=== PATIENT | male | born 1980 | race Two or more races ===

== ENCOUNTER 2020-06-24 13:27 | Inpatient (IN) | payer MEDICAID, OTHER ==
[~2020-06-24] VITALS: Ht 170.2 cm; Wt 176.7 kg
[2020-06-24] MEDS ORDERED: IPRATROPIUM BROM 0.5 MG/2.5ML INH SOL NEB ONE (14:00)
[2020-06-24] MEDS ORDERED: ALBUTEROL SULF 2.5 MG/0.5ML(0.5%) NEB SOLN NEB ONE (14:00)
[2020-06-24] MEDS ORDERED: ALBUTEROL SULF 2.5 MG/0.5ML(0.5%) NEB SOLN ONE (14:32)
[2020-06-24 14:39] LABS: Basophils # (auto) 0 10 ^3/uL (0-0.2); Basophils % (auto) 0.2 % (0.0-2.0); Eosinophils # (auto) 0.2 10 ^3/uL (0-0.8); Eosinophils % (auto) 1.7 % (0.0-7.0); Hematocrit 48.9 % (41.0-53.0); Hemoglobin 15.2 g/dL (13.5-17.5); Lymphocytes % (auto) 10.5 % (10.0-50.0); Mean Corpuscular Hemoglobin 28.3 pg (28.0-32.0); Mean Corpuscular Hgb Conc. 31.1 g/dL (32.0-36.0); Mean Corpuscular Volume 91.1 fL (80.0-100.0); Monocytes % (auto) 10.3 % (0.0-12.0); Neutrophils # (auto) 7.4 10 ^3/uL (1.6-8.6); Neutrophils % (auto) 77.3 % (37.0-80.0); Nucleated Red Blood Cells % 0.4 %; Platelet Count (auto) 224 10^3/uL (140-450); Red Blood Cells 5.37 10^6/uL (4.5-5.90); Red Cell Distribution Width 18.2 % (11.8-14.3); White Blood Cell 9.6 10^3/uL (4.4-10.8)
[2020-06-24 15:08] LABS: Albumin 3.5 g/dL (3.4-5.0); Anion Gap 1 (5-15); Blood Urea Nitrogen 13 mg/dL (7-18); Calcium 8.2 mg/dL (8.5-10.1); Carbon Dioxide 37 mmol/L (21-32); Chloride 99 mmol/L (98-107); Glucose 110 mg/dL (74-106); Potassium 4.3 mmol/L (3.5-5.1); Sodium 137 mmol/L (136-145)
[2020-06-24] MEDS ORDERED: DOXYCYCLINE 100MG/250ML 250 ML IV ONE (15:15)
[2020-06-24] MEDS ORDERED: methylPREDNISolone SOD SUCC 125 MG/2 ML VL IV ONE (15:15)
[2020-06-24 15:16] LABS: Alanine Aminotransferase 50 U/L (16-61); Alkaline Phosphatase 141 U/L (45-117); Aspartate Aminotransferase 31 U/L (15-37); BUN/Creatinine Ratio 16.7; Bilirubin, Total 0.4 mg/dL (0.2-1.0); GFR African American 144 mL/min; GFR Non-African American 119 mL/min; Total Protein 7.9 g/dL (6.4-8.2)
[2020-06-24 16:12] LABS: INR 1.01 (0.9-1.15); Partial Thromboplastin Time 28.7 sec (23.0-31.2)
[2020-06-24 18:20] VITALS: BP 104/67
[2020-06-24 19:05] VITALS: BP 104/67
[2020-06-24] MEDS ORDERED: ALBUTEROL SULF 2.5 MG/0.5ML(0.5%) NEB SOLN NEB PRN (20:45)
[2020-06-24] MEDS ORDERED: MORPHINE SULF INJ 2 MG/ML SYRINGE 1ML IV PRN ×2 (20:45)
[2020-06-24] MEDS ORDERED: NITROGLYCERIN 0.4 MG SL TAB SL PRN (20:45)
[2020-06-24] MEDS ORDERED: levoFLOXacin 750MG 150 ML IV ONE (20:45)
[2020-06-24 21:40] VITALS: BP 144/95
[2020-06-24 21:55] VITALS: BP 144/95
[2020-06-24] MEDS ORDERED: methylPREDNISolone SOD SUCC 40 MG/ML VL IM SCH (22:00)
[2020-06-24] MEDS ORDERED: METF-370 PO (22:13)
[2020-06-24] MEDS ORDERED: LISI40TA11 PO (22:13)
[2020-06-24] MEDS ORDERED: FURO1TAB31 PO (22:13)
[2020-06-24] MEDS ORDERED: BECL40AE11 IN (22:13)
[2020-06-24] MEDS ORDERED: POLY33504 PO (22:13)
[2020-06-24] MEDS ORDERED: CARV6.25 PO (22:13)
[2020-06-25] VITALS (15 sets, daily range): BP systolic 100–130; BP diastolic 55–81
[2020-06-25] MEDS: methylPREDNISolone SOD SUCC 40 MG/ML VL IV SCH ×3 (00:18→20:17)
[2020-06-25 03:45] LABS: Basophils # (auto) 0 10 ^3/uL (0-0.2); Basophils % (auto) 0.1 % (0.0-2.0); Eosinophils # (auto) 0 10 ^3/uL (0-0.8); Eosinophils % (auto) 0.1 % (0.0-7.0); Hemoglobin 15.2 g/dL (13.5-17.5); Lymphocytes # (auto) 0.8 10 ^3/uL (0.4-5.4); Lymphocytes % (auto) 7.9 % (10.0-50.0); Mean Corpuscular Hemoglobin 28.5 pg (28.0-32.0); Mean Corpuscular Hgb Conc. 31.7 g/dL (32.0-36.0); Mean Corpuscular Volume 89.9 fL (80.0-100.0); Monocytes # (auto) 0.2 10 ^3/uL (0-1.3); Monocytes % (auto) 1.7 % (0.0-12.0); Neutrophils # (auto) 9.5 10 ^3/uL (1.6-8.6); Neutrophils % (auto) 90.2 % (37.0-80.0); Nucleated Red Blood Cells % 0.1 %; Platelet Count (auto) 229 10^3/uL (140-450); Red Blood Cells 5.34 10^6/uL (4.5-5.90); White Blood Cell 10.5 10^3/uL (4.4-10.8)
[2020-06-25 05:34] LABS: Urine Amorphous Crystal FEW /hpf (None Seen); Urine Bacteria NONE SEEN /hpf (None Seen); Urine Blood Negative /uL (Negative); Urine Mucus FEW (None Seen); Urine Specific Gravity 1.018 (1.001-1.035); Urine WBC 1 /hpf (0 - 3)
[2020-06-25 05:41] LABS: Albumin 3.1 g/dL (3.4-5.0); Calcium 8.6 mg/dL (8.5-10.1); Potassium 4.6 mmol/L (3.5-5.1)
[2020-06-25 05:44] LABS: BUN/Creatinine Ratio 18.5; Bilirubin, Total 0.4 mg/dL (0.2-1.0); Total Protein 7.6 g/dL (6.4-8.2)
[2020-06-25] MEDS: ENOXAPARIN SOD 40 MG/0.4 ML SYRINGE SC SCH (10:10)
[2020-06-25] MEDS: PANTOPRAZOLE 40 MG/10 ML VIAL INJ IV SCH (10:10)
[2020-06-25] MEDS: IPRATROPIUM BROM 0.5 MG/2.5ML INH SOL NEB PRN (12:28)
[2020-06-25] MEDS: ALBUTEROL SULF 2.5 MG/0.5ML(0.5%) NEB SOLN NEB PRN (12:28)
[2020-06-25] MEDS: CLOTRIMAZOLE 1 % CREAM 15GM TOP SCH (20:17)
[2020-06-25] MEDS: levoFLOXacin 750MG 150 ML IV SCH (20:17)
[2020-06-25] MEDS ORDERED: CLOTRIMAZOLE 1 % CREAM 15GM TOP SCH (22:00)
[2020-06-26] VITALS (8 sets, daily range): BP systolic 99–143; BP diastolic 60–86
[2020-06-26 03:59] LABS: Basophils # (auto) 0 10 ^3/uL (0-0.2); Basophils % (auto) 0.3 % (0.0-2.0); Eosinophils # (auto) 0 10 ^3/uL (0-0.8); Hematocrit 47.9 % (41.0-53.0); Lymphocytes # (auto) 0.6 10 ^3/uL (0.4-5.4); Lymphocytes % (auto) 4.3 % (10.0-50.0); Mean Corpuscular Hemoglobin 28.2 pg (28.0-32.0); Mean Corpuscular Hgb Conc. 31.3 g/dL (32.0-36.0); Mean Corpuscular Volume 90.2 fL (80.0-100.0); Monocytes # (auto) 0.7 10 ^3/uL (0-1.3); Monocytes % (auto) 5.2 % (0.0-12.0); Neutrophils # (auto) 11.6 10 ^3/uL (1.6-8.6); Neutrophils % (auto) 90.2 % (37.0-80.0); Nucleated Red Blood Cells % 0.2 %; Platelet Count (auto) 245 10^3/uL (140-450); Red Cell Distribution Width 18.1 % (11.8-14.3); White Blood Cell 12.9 10^3/uL (4.4-10.8)
[2020-06-26 04:16] LABS: Albumin 2.9 g/dL (3.4-5.0); Calcium 8.6 mg/dL (8.5-10.1); Potassium 4.7 mmol/L (3.5-5.1)
[2020-06-26 04:19] LABS: BUN/Creatinine Ratio 30.9; Bilirubin, Total 0.4 mg/dL (0.2-1.0); Total Protein 6.9 g/dL (6.4-8.2)
[2020-06-26] MEDS: CLOTRIMAZOLE 1 % CREAM 15GM TOP SCH ×3 (06:06→21:30)
[2020-06-26] MEDS: methylPREDNISolone SOD SUCC 40 MG/ML VL IV SCH ×3 (06:09→21:29)
[2020-06-26] MEDS: PANTOPRAZOLE 40 MG/10 ML VIAL INJ IV SCH (10:46)
[2020-06-26] MEDS: ENOXAPARIN SOD 40 MG/0.4 ML SYRINGE SC SCH (10:46)
[2020-06-26] MEDS ORDERED: OPTISON 3ml Vial for INJ IV ONE (15:39)
[2020-06-26] MEDS: levoFLOXacin 750MG 150 ML IV SCH (21:28)
[2020-06-26] MEDS: CARVEDILOL 3.125 MG TAB PO SCH (21:29)
[2020-06-27] VITALS: BP 122/72
[2020-06-27 03:48] LABS: Basophils # (auto) 0 10 ^3/uL (0-0.2); Basophils % (auto) 0.3 % (0.0-2.0); Eosinophils # (auto) 0 10 ^3/uL (0-0.8); Hematocrit 48.1 % (41.0-53.0); Hemoglobin 15.5 g/dL (13.5-17.5); Lymphocytes # (auto) 0.6 10 ^3/uL (0.4-5.4); Lymphocytes % (auto) 5.3 % (10.0-50.0); Mean Corpuscular Hemoglobin 28.7 pg (28.0-32.0); Mean Corpuscular Hgb Conc. 32.2 g/dL (32.0-36.0); Mean Corpuscular Volume 89.2 fL (80.0-100.0); Monocytes # (auto) 0.9 10 ^3/uL (0-1.3); Monocytes % (auto) 7.5 % (0.0-12.0); Neutrophils # (auto) 10.4 10 ^3/uL (1.6-8.6); Neutrophils % (auto) 86.9 % (37.0-80.0); Nucleated Red Blood Cells % 0.1 %; Platelet Count (auto) 262 10^3/uL (140-450); Red Cell Distribution Width 18.1 % (11.8-14.3)
[2020-06-27 03:57] VITALS: BP 118/76
[2020-06-27 04:04] LABS: Potassium 4.8 mmol/L (3.5-5.1)
[2020-06-27 04:08] LABS: BUN/Creatinine Ratio 33.9; Bilirubin, Total 0.6 mg/dL (0.2-1.0); Calcium 8.8 mg/dL (8.5-10.1)
[2020-06-27] MEDS: IPRATROPIUM BROM 0.5 MG/2.5ML INH SOL NEB PRN (06:21)
[2020-06-27] MEDS: ALBUTEROL SULF 2.5 MG/0.5ML(0.5%) NEB SOLN NEB PRN (06:21)
[2020-06-27] MEDS: methylPREDNISolone SOD SUCC 40 MG/ML VL IV SCH ×2 (06:57→14:34)
[2020-06-27 07:40] VITALS: BP 154/98
[2020-06-27] MEDS: PANTOPRAZOLE 40 MG/10 ML VIAL INJ IV SCH (10:00)
[2020-06-27] MEDS: ENOXAPARIN SOD 40 MG/0.4 ML SYRINGE SC SCH (10:00)
[2020-06-27] MEDS: CARVEDILOL 3.125 MG TAB PO SCH (10:00)
[2020-06-27] MEDS: CLOTRIMAZOLE 1 % CREAM 15GM TOP SCH (11:00)
[2020-06-27 11:35] VITALS: BP 157/98
[2020-06-27] MEDS ORDERED: LISINOPRIL 20 MG TAB PO ONE (13:15)
[2020-06-27] MEDS ORDERED: amLODIPine BESYLATE 5 MG TAB PO ONE (13:15)
[2020-06-27] MEDS ORDERED: CLOT1CRE56 TOP (13:16)
[2020-06-27] MEDS ORDERED: PRED20TA2 PO (13:16)
[2020-06-27] MEDS ORDERED: IPRA0.00 IN (13:16)
[2020-06-27] MEDS ORDERED: FURO1TAB31 PO (13:16)
[2020-06-27] MEDS ORDERED: POTA10TA32 PO (13:16)
[2020-06-27] MEDS ORDERED: BECL40AE11 IN (13:16)
[2020-06-27] MEDS ORDERED: AMLO5TAB15 PO (13:16)
[2020-06-27] MEDS ORDERED: METF-370 PO (13:16)
[2020-06-27] MEDS ORDERED: LISI-646 PO (13:16)
[2020-06-27 14:08] VITALS: BP 157/98
== END 2020-06-27 15:25 | disposition home or self-care (01) | DRG 141 ==
LOC: ER 13:27 → TELE 13:28 → DOU IN ICU 21:40
PROVIDERS: ADMIT Internal Medicine; ATTEND Internal Medicine
PROC: 5A09457 Assistance with Respiratory Ventilation, 24-96 Consecutive Hours, Continuous Positive Airway Pressure (ICD-10-PCS; principal; 2020-06-24)
DX: J45.51 Severe persistent asthma with (acute) exacerbation (principal); J96.21 Acute and chronic respiratory failure with hypoxia; J96.22 Acute and chronic respiratory failure with hypercapnia; E66.01 Morbid (severe) obesity due to excess calories; Z99.11 Dependence on respirator [ventilator] status; Z20.828 Contact with and (suspected) exposure to other viral communicable diseases; G47.33 Obstructive sleep apnea (adult) (pediatric); I50.9 Heart failure, unspecified; Z91.14 Patient's other noncompliance with medication regimen; Z68.44 Body mass index [BMI] 60.0-69.9, adult; Z91.012 Allergy to eggs
CPT/HCPCS: 36415; 36600; 71045; 80053; 81001; 82805; 83605; 83735; 83880; 84484; 85025; 85379; 85610; 85730; 87040; 87081; 87426; 93005; 93306; 94640; 94660; 97163; C9113; G0378; J1956; J3490; Q9956

== ENCOUNTER 2020-08-10 16:42 | Inpatient (IN) | payer MEDICAID ==
[~2020-08-10] VITALS: Ht 172.7 cm; Wt 169.5 kg
[~2020-08-10 16:42] MED LIST: AMLO5TAB15 PO; BECL40AE11 IN; CLOT1CRE56 TOP; FURO1TAB31 PO; IPRA0.00 IN; LISI-646 PO; LISI40TA11 PO; METF-370 PO; POLY33504 PO; POTA10TA32 PO; PRED20TA2 PO
[2020-08-10] MEDS ORDERED: FUROSEMIDE 40 MG/4 ML VIAL IV ONE (17:15)
[2020-08-10 18:23] LABS: Basophils # (auto) 0 10 ^3/uL (0-0.2); Basophils % (auto) 0.4 % (0.0-2.0); Eosinophils # (auto) 0.2 10 ^3/uL (0-0.8); Eosinophils % (auto) 1.5 % (0.0-7.0); Hematocrit 49.9 % (41.0-53.0); Hemoglobin 15.5 g/dL (13.5-17.5); Lymphocytes # (auto) 1.1 10 ^3/uL (0.4-5.4); Lymphocytes % (auto) 9.7 % (10.0-50.0); Mean Corpuscular Hemoglobin 27.6 pg (28.0-32.0); Mean Corpuscular Hgb Conc. 31.1 g/dL (32.0-36.0); Mean Corpuscular Volume 88.8 fL (80.0-100.0); Monocytes % (auto) 8.7 % (0.0-12.0); Neutrophils % (auto) 79.7 % (37.0-80.0); Nucleated Red Blood Cells % 0.1 %; Platelet Count (auto) 217 10^3/uL (140-450); Red Blood Cells 5.61 10^6/uL (4.5-5.90); Red Cell Distribution Width 19.7 % (11.8-14.3); White Blood Cell 11.3 10^3/uL (4.4-10.8)
[2020-08-10 18:32] LABS: Alanine Aminotransferase 75 U/L (16-61); Albumin 3.4 g/dL (3.4-5.0); Anion Gap 2 (5-15); Aspartate Aminotransferase 39 U/L (15-37); BUN/Creatinine Ratio 14.6; Blood Urea Nitrogen 12 mg/dL (7-18); Carbon Dioxide 37 mmol/L (21-32); Chloride 98 mmol/L (98-107); GFR African American 135 mL/min; GFR Non-African American 112 mL/min; Glucose 97 mg/dL (74-106); Potassium 4.6 mmol/L (3.5-5.1); Sodium 137 mmol/L (136-145)
[2020-08-10 18:36] LABS: Alkaline Phosphatase 151 U/L (45-117); Bilirubin, Total 0.4 mg/dL (0.2-1.0); Total Protein 7.5 g/dL (6.4-8.2)
[2020-08-10] MEDS ORDERED: MORPHINE SULF INJ 2 MG/ML SYRINGE 1ML IV PRN ×3 (18:45→22:15)
[2020-08-10] MEDS ORDERED: NITROGLYCERIN 0.4 MG SL TAB SL PRN ×2 (18:45→22:15)
[2020-08-10 20:32] LABS: Urine WBC None Seen /hpf (0 - 3)
[2020-08-10 20:42] VITALS: BP 114/81
[2020-08-10 20:42] LABS: Urine Bacteria NONE SEEN /hpf (None Seen); Urine Blood Negative /uL (Negative); Urine Specific Gravity 1.006 (1.001-1.035)
--- NOTE | 2020-08-10 22:00 | NUR ---
hospitalist page hospitalist called re:cpap . Waiting for call back. Continue care.
--- NOTE | 2020-08-10 22:13 | NUR ---
hospitalist pg returned call Motley SHOP HAND returned call, updated on patient status and reason for call, new orders received and read back and verify by Motley SHOP HAND Continue care.
[2020-08-10] MEDS ORDERED: ALUM & MAG HYDROX-SIMETH LIQ(MAALOX) 30 ML PO PRN (22:15)
[2020-08-10] MEDS ORDERED: LORazepam 0.5 MG TAB PO PRN (22:15)
[2020-08-10] MEDS ORDERED: methylPREDNISolone SOD SUCC 125 MG/2 ML VL IM ONE (22:15)
[2020-08-10] MEDS ORDERED: hydrALAZINE HCL 20 MG/ML VL IV PRN (22:15)
[2020-08-10] MEDS ORDERED: ONDANSETRON HCL 4 MG/2 ML VIAL IV PRN (22:15)
[2020-08-10] MEDS ORDERED: ALBUTEROL SULF 2.5 MG/0.5ML(0.5%) NEB SOLN NEB PRN (22:15)
[2020-08-10] MEDS ORDERED: DEXTROSE (50%) 50ML SYRG IV PRN (22:15)
[2020-08-10] MEDS: NIFEdipine ER 30 MG TAB PO ONE ×2 (22:15→23:22)
[2020-08-10] MEDS ORDERED: ACETAMINOPHEN 500 MG TAB PO PRN (22:15)
[2020-08-10] MEDS ORDERED: HYDROcodone-ACET 5/325MG TAB PO PRN (22:15)
[2020-08-10] MEDS ORDERED: DOCUSATE SOD 100 MG CAP PO PRN (22:15)
--- NOTE | 2020-08-10 22:35 | NUR ---
Respiratory note: [place] IS REFUSING ABG AT THIS TIME. PT STATED THAT HE DIDN'T WANT TO GIVE ANY BLOOD. RN WILMER AWARE. WILL CONTINUE TO MONITOR.
--- NOTE | 2020-08-10 23:20 | NUR ---
VERIFY WITH PHARMACIST THAT SOLU-MEDROL 125MG IM is safe to give to pt
[2020-08-10] MEDS: DOXYCYCLINE 100MG/250ML 250 ML IV SCH (23:21)
[2020-08-10 23:29] LABS: Magnesium 2.8 mg/dL (1.6-2.6)
[2020-08-10 23:40] LABS: CRP High Sensitivity 2.23 mg/dL (< 0.3)
[2020-08-10 23:44] LABS: Alcohol, Urine < 3.0 mg/dL (0-10); Amphetamine Screen, Urine NEGATIVE (NEGATIVE); Barbiturate Scree,Urine NEGATIVE (NEGATIVE); Benzodiazephine Screen, Urine NEGATIVE (NEGATIVE); Cannabinoid Screen, Urine NEGATIVE (NEGATIVE); Cocaine Screen, Urine NEGATIVE (NEGATIVE); Opiate Scree,Urine NEGATIVE (NEGATIVE); Phencyclidine Screen, Urine NEGATIVE (NEGATIVE)
[2020-08-11] VITALS (27 sets, daily range): BP systolic 96–134; BP diastolic 50–83
--- NOTE | 2020-08-11 00:38 | NUR ---
PT STATED HIS MOM WILL BRING A COPY OF MEDICATION LIST TOMORROW WILL ENDORSE TO DAY SHIFT RN
[2020-08-11 01:24] LABS: Phosphorus 4.6 mg/dL (2.5-4.90)
[2020-08-11] MEDS: IPRATROPIUM BROM 0.5 MG/2.5ML INH SOL NEB SCH ×7 (01:44→22:57)
[2020-08-11] MEDS: InsuLIN REG 1unit/0.01ml Soln (100units/ml) SC SCH ×4 (05:41→21:58)
[2020-08-11] MEDS: ACCU-CHEK COMFORT CURVE STRIP VI SCH ×4 (05:44→21:44)
[2020-08-11] MEDS: methylPREDNISolone SOD SUCC 40 MG/ML VL IV SCH ×3 (05:45→21:43)
[2020-08-11] MEDS: FUROSEMIDE 40 MG/4 ML VIAL IV SCH ×2 (05:46→17:46)
--- NOTE | 2020-08-11 06:46 | NUR ---
END OF SHIFT NOTE WILL ENDORSE PT CARE TO DAY SHIFT RN.PT AOX4, NO S/S OF DISTRESS OR SOB
--- NOTE | 2020-08-11 07:35 | NUR ---
Respiratory note: PATIENT REMOVED FROM CPAP AT THIS TIME AND PLACED ON 6LPM SIMPLE MASK. SPO2 MAINTAINS AT 93%.
[2020-08-11 07:49] LABS: Basophils # (auto) 0 10 ^3/uL (0-0.2); Eosinophils % (auto) 0.4 % (0.0-7.0); Mean Corpuscular Hemoglobin 26.5 pg (28.0-32.0); Monocytes # (auto) 0.2 10 ^3/uL (0-1.3); Nucleated Red Blood Cells % 0.3 %; Red Blood Cells 6.06 10^6/uL (4.5-5.90)
[2020-08-11 07:52] LABS: Basophils % (auto) 0.2 % (0.0-2.0); Eosinophils # (auto) 0.1 10 ^3/uL (0-0.8); Hematocrit 54.1 % (41.0-53.0); Hemoglobin 16.1 g/dL (13.5-17.5); Lymphocytes # (auto) 0.9 10 ^3/uL (0.4-5.4); Lymphocytes % (auto) 7.8 % (10.0-50.0); Mean Corpuscular Hgb Conc. 29.7 g/dL (32.0-36.0); Mean Corpuscular Volume 89.3 fL (80.0-100.0); Monocytes % (auto) 1.9 % (0.0-12.0); Neutrophils # (auto) 10.2 10 ^3/uL (1.6-8.6); Neutrophils % (auto) 89.7 % (37.0-80.0); Platelet Count (auto) 236 10^3/uL (140-450); White Blood Cell 11.3 10^3/uL (4.4-10.8)
[2020-08-11 07:56] LABS: Red Cell Distribution Width 20.6 % (11.8-14.3)
[2020-08-11 08:05] LABS: INR 1.04 (0.9-1.15); Partial Thromboplastin Time 27.6 sec (23.0-31.2)
[2020-08-11 08:13] LABS: Chloride 95 mmol/L (98-107); Potassium 4.4 mmol/L (3.5-5.1); Sodium 136 mmol/L (136-145)
[2020-08-11 08:19] LABS: Alanine Aminotransferase 74 U/L (16-61); Albumin 3.5 g/dL (3.4-5.0); Alkaline Phosphatase 148 U/L (45-117); Anion Gap 3 (5-15); Aspartate Aminotransferase 30 U/L (15-37); BUN/Creatinine Ratio 14.9; Bilirubin, Total 0.6 mg/dL (0.2-1.0); Blood Urea Nitrogen 10 mg/dL (7-18); Calcium 8.6 mg/dL (8.5-10.1); Carbon Dioxide 38 mmol/L (21-32); Cholesterol 196 mg/dL (< 200); GFR African American 171 mL/min; GFR Non-African American 141 mL/min; Glucose 142 mg/dL (74-106); HDL Cholesterol 34 mg/dL (40-59); LDL Cholesterol 151 mg/dL (< 100); Magnesium 2.9 mg/dL (1.6-2.6); Phosphorus 3.9 mg/dL (2.5-4.90); Total Protein 7.6 g/dL (6.4-8.2); Triglycerides 113 mg/dL (< 150)
[2020-08-11] MEDS ORDERED: ZINC SULFATE 220mg CAP or TAB PO SCH (10:00)
[2020-08-11] MEDS ORDERED: ASCORBIC ACID 1,000 MG TAB PO SCH (10:00)
[2020-08-11] MEDS ORDERED: CHOLECALCIFEROL (VITD3) 2,000 UNIT CAP PO SCH (10:00)
[2020-08-11] MEDS ORDERED: LISINOPRIL 20 MG TAB PO SCH (10:00)
[2020-08-11] MEDS: DOXYCYCLINE 100MG/250ML 250 ML IV SCH ×2 (10:07→21:44)
[2020-08-11] MEDS: ENOXAPARIN SOD 40 MG/0.4 ML SYRINGE SC SCH ×2 (10:07→21:44)
[2020-08-11] MEDS: POTASSIUM CHL 20 Meq TABLET PO SCH (10:07)
[2020-08-11] MEDS: NIFEdipine ER 30 MG TAB PO SCH (10:08)
--- NOTE | 2020-08-11 10:14 | NUR ---
Patient placed on CPAP at this time d/t patient continued to desat despite facemask and then placed on non rebreather at 15L patient maintained o2 >92% but wound desat into the 70's once he was noted sleeping. Patient sat 95% on CPAP at this time, denies sob. Ace Turner notified and will obtain ABG as ordered. Cont to monitor
--- NOTE | 2020-08-11 11:30 | NUR ---
Accu check noted elevated, will medicate with insulin per sliding scale. Patient noted slightly more lethargic, alert and oriented and states he does not feel better despite CPAP, o2 noted >92% at this time. No acute distress or sob noted. Will cont to monitor closely. Awaiting pending ABG from Johnny Bello at this time.
--- NOTE | 2020-08-11 12:36 | NUR ---
MD at bedside pt is lethargic, responds to pain stimuli only and has eye opening, major change in status from an hour ago noted at this time. Patient unable to follow commands at this time. Awaiting ABG at bedside, Gely hamilton stat. Cont to monitor closely
--- NOTE | 2020-08-11 12:43 | NUR ---
MD Calhoun aware of ABG results, new orders given to R.T cont to monitor closely. Awaiting ICU bed at this time, house miriam Shanks and charge master specialist aware.
--- NOTE | 2020-08-11 12:50 | NUR ---
Respiratory note: NEW ORDERS FOR BIPAP MODE GIVEN FROM DR. VINSON POST ABG RESULTS. IPAP 15, EPAP 7 ORDERED AT THIS TIME. ABG TO FOLLOW IN 2HRS. THEO CIFUENTES AWARE OF CHANGE.
[2020-08-11] MEDS ORDERED: methylPREDNISolone SOD SUCC 40 MG/ML VL IV SCH (14:00)
[2020-08-11] MEDS: ALBUTEROL SULF 2.5 MG/0.5ML(0.5%) NEB SOLN NEB SCH ×3 (14:45→22:57)
--- NOTE | 2020-08-11 15:17 | NUR ---
Patient transferred to room 234 from 239 at this time, awaiting ICU bed. Patient noted slightly more arousable able to open eyes and answer simple questions. Currently on Bipap sat 90%. Cont to monitor closely.
--- NOTE | 2020-08-11 16:06 | NUR ---
MD Calhoun aware of patient's status including ABG results. Awaiting ICU bed at this time.
--- NOTE | 2020-08-11 16:40 | NUR ---
Patient transferred to room 111 ICU with Arben paris, care endorsed and pt transported via bed with ACLS guidelines and portable oxygen by charge aideraina Mora. Pt transferred with all personal belongings. No acute distress or sob noted on departure.
--- NOTE | 2020-08-11 16:57 | NUR ---
PT IN ICU PT ALERT/ORIENTED, ABLE TO FOLLOW COMMAND. NO DISTRESS NOTED. CONNECTED TO BIPAP WITH POX 94%. PT ON MONITOR WITH VSS. CALL LIGHT WITHIN REACH AND BED LOCKED FOR SAFETY.
[2020-08-11] MEDS: BUDESONIDE (INHALATION) 0.5 MG/2 ML NEB NEB SCH (19:30)
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
--- NOTE | 2020-08-11 23:00 | NUR ---
Rounds Pt is lying in bed, eyes closed, on Bipap. VSS, no s/s of distress noted at this time. Respirations are even and unlabored. Pt denies any pain or any complaints at this time. Will continue to monitor.
[2020-08-12] VITALS (61 sets, daily range): BP systolic 93–157; BP diastolic 50–87
[2020-08-12] MEDS: ALBUTEROL SULF 2.5 MG/0.5ML(0.5%) NEB SOLN NEB SCH ×6 (02:34→23:06)
[2020-08-12] MEDS: IPRATROPIUM BROM 0.5 MG/2.5ML INH SOL NEB SCH ×6 (02:34→23:05)
--- NOTE | 2020-08-12 03:07 | NUR ---
Linen change Linen change completed at this time. Pt tolerated well. Will continue to monitor.
[2020-08-12] MEDS: FUROSEMIDE 40 MG/4 ML VIAL IV SCH (06:07)
[2020-08-12] MEDS: methylPREDNISolone SOD SUCC 40 MG/ML VL IV SCH (06:07)
[2020-08-12] MEDS: BUDESONIDE (INHALATION) 0.5 MG/2 ML NEB NEB SCH ×2 (06:17→23:05)
[2020-08-12] MEDS: ACCU-CHEK COMFORT CURVE STRIP VI SCH ×4 (06:34→21:28)
[2020-08-12] MEDS: InsuLIN REG 1unit/0.01ml Soln (100units/ml) SC SCH ×4 (06:35→21:28)
--- NOTE | 2020-08-12 07:30 | NUR ---
Opening Shift Note Report received from business administration professor RN. Pt on BIPAP. Full assessment done, see interventions. Pt alert and oriented times 4. Pt has telemetry downgrade orders. Iv 20G to left AC patent. Villa catheter draining to gravity, secured below bladder. VSS. Will continue to monitor closely
--- NOTE | 2020-08-12 09:20 | NUR ---
PT REMOVED FROM BIPAP AT THIS TIME PER DR. MAC'S ORDERS. PT PLACED ON 3L NC WITH SPO2 91%, HR 98, RR 16 WITH DIMINISHED BS. THEO SCALES MADE AWARE. WILL CONTINUE TO MONITOR PT.
--- NOTE | 2020-08-12 09:48 | NUR ---
Pt taken off BIPAP by RT at this time placed on 2l n.c. Tolerating well. Will continue to monitor pt closely.
[2020-08-12] MEDS: ENOXAPARIN SOD 40 MG/0.4 ML SYRINGE SC SCH ×2 (10:03→21:28)
[2020-08-12] MEDS: DOXYCYCLINE 100MG/250ML 250 ML IV SCH (10:03)
[2020-08-12] MEDS: POTASSIUM CHL 20 Meq TABLET PO SCH (10:03)
[2020-08-12] MEDS: NIFEdipine ER 30 MG TAB PO SCH (10:13)
--- NOTE | 2020-08-12 10:30 | NUR ---
MD Calhoun at bedside. No new orders at this time.
[2020-08-12] MEDS ORDERED: IOHEXOL 350 MG/ML 100ML IJ ONE ×2 (11:28→11:54)
--- NOTE | 2020-08-12 12:00 | NUR ---
Pt taken to CT and back with this RN and transport team, without incidence
--- NOTE | 2020-08-12 15:10 | NUR ---
Report called to extruding press operator. Pt transferred to 278A with telemetry box #[id number]
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
--- NOTE | 2020-08-12 19:30 | NUR ---
Opening Shift Note Assumed care of patient, awake and alert. No S/S of distress/SOB or pain. Patient on 3L NC. Safety measures maintained by keeping the bed locked in lowest position, 2 side rails up, personal items and call light within reach. Instructed on POC and to call for assist PRN, will continue to monitor for changes Q1hr and PRN.
[2020-08-12] MEDS: DOXYCYCLINE 100 MG TAB/CAP PO SCH (21:44)
--- NOTE | 2020-08-12 21:45 | NUR ---
Magana catheter dc'd Order to discontinue magana catheter. Magana dc'd with clean technique following deflation of balloon. Patient tolerated well with no complaints of pain. Urinal at bedside. Will scan bladder if not urinating.
[2020-08-13] MEDS: IPRATROPIUM BROM 0.5 MG/2.5ML INH SOL NEB SCH (02:19)
[2020-08-13] MEDS: ALBUTEROL SULF 2.5 MG/0.5ML(0.5%) NEB SOLN NEB SCH (02:19)
--- NOTE | 2020-08-13 02:20 | NUR ---
Respiratory note: PT REQUESTED TO COME OFF BIPAP AT THIS TIME. PT PLACED ON 3L NC, NO SIGNS OF RESPIRATORY DISTRESS. PT REMAINS ON BEDSIDE PULSE OX. WILL CONT TO MONITOR.
--- NOTE | 2020-08-13 05:15 | NUR ---
Patient has not urinated on his own yet. Bladder scan done, 30mL scanned. Patient encouraged to drink more fluids.
[2020-08-13] MEDS: InsuLIN REG 1unit/0.01ml Soln (100units/ml) SC SCH ×3 (06:25→17:00)
[2020-08-13] MEDS: ACCU-CHEK COMFORT CURVE STRIP VI SCH ×3 (06:25→17:24)
[2020-08-13 06:55] LABS: Potassium 3.8 mmol/L (3.5-5.1)
[2020-08-13 07:02] LABS: BUN/Creatinine Ratio 33.8
--- NOTE | 2020-08-13 07:30 | NUR ---
Opening Shift Note Assumed care of patient, awake and alert. No S/S of distress/SOB or pain. Instructed on POC and to call for assist PRN, will continue to monitor for changes Q1hr and PRN. Bed is locked and in lowest position. Call light within reach.
[2020-08-13 09:00] VITALS: BP 123/69
[2020-08-13] MEDS: ENOXAPARIN SOD 40 MG/0.4 ML SYRINGE SC SCH (09:58)
[2020-08-13] MEDS: POTASSIUM CHL 20 Meq TABLET PO SCH (09:59)
[2020-08-13] MEDS: DOXYCYCLINE 100 MG TAB/CAP PO SCH (09:59)
[2020-08-13] MEDS ORDERED: FUROSEMIDE 40 MG/4 ML VIAL IV SCH (10:00)
[2020-08-13] MEDS ORDERED: predniSONE 20 MG TAB PO SCH (10:00)
[2020-08-13] MEDS: NIFEdipine ER 30 MG TAB PO SCH (10:02)
[2020-08-13] MEDS ORDERED: PANT40TA2 PO (11:58)
[2020-08-13 13:00] VITALS: BP 125/77
[2020-08-13 14:32] VITALS: BP 123/69
[2020-08-13] MEDS ORDERED: PRED20TA2 PO (15:27)
--- NOTE | 2020-08-13 15:30 | NUR ---
D/C Planning Per social service consult for home oxygen. Faxed clinical information to [facility]. Placed follow up called to [facility] , spoke to [facility]. Per [facility] order has been received and they will deliver portable oxygen to bedside before 7pm.
[2020-08-13 17:00] VITALS: BP 133/80
--- NOTE | 2020-08-13 18:35 | NUR ---
DISCHARGED PATIENT GIVEN DISCHARGE PAPERWORK, ALL QUESTIONS AND CONCERNS ANSWERED. PATIENT HAS HOME O2 AT BEDSIDE THAT WILL BE TAKEN HOME WHEN DISCHARGED. PATIENT PLACED IN 3L NC WHEN DISCHARGED. PATIENT STATED NO SIGNS OF SOB. PATIENT WAS ABLE TO TRANSFER FROM BED TO WHEELCHAIR WITH NO ASSISTANCE. PATIENT TELEMONITOR REMOVED AND SENT TO ICU HEART LAB. IV removal IV DC'd with clean sterile technique, catheter fully intact. Pressure dressing applied to site. Patient tolerated well.
== END 2020-08-13 18:35 | disposition home or self-care (01) | DRG 140 ==
LOC: ER 16:42 → TELE-EAST 16:43 → ICU WEST 08-11 16:20 → TELE-WESTW 08-12 15:17
PROVIDERS: ADMIT Hospitalist; ATTEND Internal Medicine
PROC: 5A09357 Assistance with Respiratory Ventilation, Less than 24 Consecutive Hours, Continuous Positive Airway Pressure (ICD-10-PCS; principal; 2020-08-10)
PROC: 5A09357 Assistance with Respiratory Ventilation, Less than 24 Consecutive Hours, Continuous Positive Airway Pressure (ICD-10-PCS; 2020-08-11)
PROC: 5A09357 Assistance with Respiratory Ventilation, Less than 24 Consecutive Hours, Continuous Positive Airway Pressure (ICD-10-PCS; 2020-08-12)
PROC: 5A09357 Assistance with Respiratory Ventilation, Less than 24 Consecutive Hours, Continuous Positive Airway Pressure (ICD-10-PCS; 2020-08-13)
DX: J44.1 Chronic obstructive pulmonary disease with (acute) exacerbation (principal); J45.901 Unspecified asthma with (acute) exacerbation; J96.21 Acute and chronic respiratory failure with hypoxia; J96.22 Acute and chronic respiratory failure with hypercapnia; I50.33 Acute on chronic diastolic (congestive) heart failure; I11.0 Hypertensive heart disease with heart failure; R16.0 Hepatomegaly, not elsewhere classified; E66.2 Morbid (severe) obesity with alveolar hypoventilation; K76.0 Fatty (change of) liver, not elsewhere classified; D72.829 Elevated white blood cell count, unspecified; G93.41 Metabolic encephalopathy; Z20.828 Contact with and (suspected) exposure to other viral communicable diseases; E11.9 Type 2 diabetes mellitus without complications; E78.5 Hyperlipidemia, unspecified; Z82.49 Family history of ischemic heart disease and other diseases of the circulatory system; Z91.14 Patient's other noncompliance with medication regimen; Z68.43 Body mass index [BMI] 50.0-59.9, adult
CPT/HCPCS: 36415; 36600; 51702; 71045; 71275; 80048; 80053; 80061; 80307; 81001; 82728; 82805; 82962; 83036; 83605; 83615; 83735; 83880; 84100; 84443; 84484; 85025; 85379; 85610; 85730; 86141; 87040; 87086; 87426; 93005; 94640; 94660; 96372; 97163; G0378; J1815; J3490

== ENCOUNTER 2020-09-15 08:37 | Inpatient (IN) | payer MEDICAID ==
[~2020-09-15] VITALS: Ht 170.2 cm; Wt 168.0 kg
[~2020-09-15 08:37] MED LIST changes: +AMLO-489 PO; -AMLO5TAB15 PO; -LISI40TA11 PO; +PANT40TA2 PO
[2020-09-15 09:39] LABS: Basophils # (auto) 0 10 ^3/uL (0-0.2); Basophils % (auto) 0.4 % (0.0-2.0); Eosinophils # (auto) 0.2 10 ^3/uL (0-0.8); Lymphocytes # (auto) 0.9 10 ^3/uL (0.4-5.4); Monocytes # (auto) 0.7 10 ^3/uL (0-1.3); Neutrophils # (auto) 7.7 10 ^3/uL (1.6-8.6); Neutrophils % (auto) 80.9 % (37.0-80.0); White Blood Cell 9.6 10^3/uL (4.4-10.8)
[2020-09-15 09:41] LABS: Eosinophils % (auto) 1.9 % (0.0-7.0); Hematocrit 53.4 % (41.0-53.0); Hemoglobin 16.5 g/dL (13.5-17.5); Lymphocytes % (auto) 9.6 % (10.0-50.0); Mean Corpuscular Hemoglobin 27.1 pg (28.0-32.0); Mean Corpuscular Hgb Conc. 30.9 g/dL (32.0-36.0); Mean Corpuscular Volume 87.5 fL (80.0-100.0); Monocytes % (auto) 7.2 % (0.0-12.0); Nucleated Red Blood Cells % 0.2 %; Platelet Count (auto) 198 10^3/uL (140-450); Red Cell Distribution Width 20.5 % (11.8-14.3)
[2020-09-15 09:57] LABS: Alanine Aminotransferase 59 U/L (16-61); Albumin 3.6 g/dL (3.4-5.0); Anion Gap 2 (5-15); Aspartate Aminotransferase 33 U/L (15-37); BUN/Creatinine Ratio 13.2; Blood Urea Nitrogen 9 mg/dL (7-18); Calcium 8.6 mg/dL (8.5-10.1); Chloride 94 mmol/L (98-107); GFR African American 168 mL/min; GFR Non-African American 139 mL/min; Glucose 99 mg/dL (74-106); Potassium 4.1 mmol/L (3.5-5.1); Sodium 138 mmol/L (136-145)
[2020-09-15 10:02] LABS: Alkaline Phosphatase 158 U/L (45-117); Bilirubin, Total 0.5 mg/dL (0.2-1.0); Total Protein 8.1 g/dL (6.4-8.2)
[2020-09-15 10:04] LABS: Carbon Dioxide 42 mmol/L (21-32)
[2020-09-15] MEDS ORDERED: MORPHINE SULF INJ 2 MG/ML SYRINGE 1ML IV PRN ×2 (16:15)
[2020-09-15] MEDS ORDERED: ONDANSETRON HCL 4 MG/2 ML VIAL IV PRN (16:15)
[2020-09-15] MEDS ORDERED: HYDROcodone-ACET 5/325MG TAB PO PRN (16:15)
[2020-09-15] MEDS ORDERED: NITROGLYCERIN 0.4 MG SL TAB SL PRN (16:15)
[2020-09-15] MEDS: FUROSEMIDE 40 MG/4 ML VIAL IV ONE ×2 (17:00→18:06)
[2020-09-15] MEDS ORDERED: SUCCINYLCHOLINE CHLORIDE 20 MG/ML 10ML VIAL IV ONE ×2 (18:51→20:00)
[2020-09-15] MEDS ORDERED: MIDAZOLAM HCL 5 MG/ML-1ML VIAL ONE (18:57)
[2020-09-15 19:05] VITALS: BP 125/62
[2020-09-15] MEDS: MIDAZOLAM DRIP 50 mg/50mL 50 ML IV SCH (19:28)
[2020-09-15] MEDS ORDERED: NOREPINEPHRINE 8 MG/250ML KIT 250 ML IV SCH (20:00)
[2020-09-15] MEDS ORDERED: MIDAZOLAM HCL 5 MG/ML-1ML VIAL IV ONE (20:00)
[2020-09-15] MEDS ORDERED: ETOMIDATE (2MG/ML) 20ML VIAL IV ONE (20:00)
[2020-09-15] MEDS: NOREPINEPHRINE 8 MG/250ML KIT 250 ML IV SCH (20:08)
[2020-09-15] MEDS: fentaNYL Drip 2500mCg/250mlNS 250 ML IV SCH (20:35)
[2020-09-15 22:43] VITALS: BP 113/61
[2020-09-15 23:34] VITALS: BP 120/75
[2020-09-15] MEDS: ACETAMINOPHEN 650 MG RECT SUPP PR PRN (23:38)
[2020-09-16 01:50] VITALS: BP 137/60
[2020-09-16 06:13] LABS: Basophils # (auto) 0 10 ^3/uL (0-0.2); Hemoglobin 15.3 g/dL (13.5-17.5); Lymphocytes # (auto) 0.6 10 ^3/uL (0.4-5.4); Neutrophils # (auto) 10.2 10 ^3/uL (1.6-8.6)
[2020-09-16 06:16] LABS: Basophils % (auto) 0.1 % (0.0-2.0); Eosinophils # (auto) 0.1 10 ^3/uL (0-0.8); Eosinophils % (auto) 0.6 % (0.0-7.0); Hematocrit 49.8 % (41.0-53.0); Lymphocytes % (auto) 5.1 % (10.0-50.0); Mean Corpuscular Hemoglobin 26.6 pg (28.0-32.0); Mean Corpuscular Hgb Conc. 30.6 g/dL (32.0-36.0); Mean Corpuscular Volume 86.7 fL (80.0-100.0); Monocytes % (auto) 8.4 % (0.0-12.0); Neutrophils % (auto) 85.8 % (37.0-80.0); Nucleated Red Blood Cells % 0.2 %; Platelet Count (auto) 182 10^3/uL (140-450); Red Blood Cells 5.74 10^6/uL (4.5-5.90); White Blood Cell 11.9 10^3/uL (4.4-10.8)
[2020-09-16 06:22] LABS: Red Cell Distribution Width 20.1 % (11.8-14.3)
[2020-09-16 06:26] LABS: Alanine Aminotransferase 43 U/L (16-61); Albumin 3.1 g/dL (3.4-5.0); Anion Gap 4 (5-15); Aspartate Aminotransferase 21 U/L (15-37); BUN/Creatinine Ratio 14.8; Blood Urea Nitrogen 12 mg/dL (7-18); Calcium 8.4 mg/dL (8.5-10.1); Carbon Dioxide 38 mmol/L (21-32); Chloride 93 mmol/L (98-107); GFR African American 137 mL/min; GFR Non-African American 113 mL/min; Glucose 116 mg/dL (74-106); Sodium 135 mmol/L (136-145); Total Protein 6.8 g/dL (6.4-8.2)
[2020-09-16 06:29] LABS: Alkaline Phosphatase 135 U/L (45-117)
[2020-09-16 06:34] VITALS: BP 138/72
[2020-09-16] MEDS: levoFLOXacin 500MG 100 ML IV SCH (10:00)
[2020-09-16] MEDS: ENOXAPARIN SOD 40 MG/0.4 ML SYRINGE SC SCH (10:00)
[2020-09-16] MEDS ORDERED: FUROSEMIDE 40 MG/4 ML VIAL IV SCH (10:00)
[2020-09-16] MEDS: MIDAZOLAM DRIP 50 mg/50mL 50 ML IV SCH ×4 (10:26→19:54)
[2020-09-16 11:45] VITALS: BP 131/77
[2020-09-16] MEDS: fentaNYL Drip 2500mCg/250mlNS 250 ML IV SCH (12:54)
[2020-09-16 13:26] VITALS: BP 135/69
[2020-09-16] MEDS: ALBUTEROL SULF 2.5 MG/0.5ML(0.5%) NEB SOLN NEB SCH ×3 (13:26→19:30)
[2020-09-16] MEDS: IPRATROPIUM BROM 0.5 MG/2.5ML INH SOL NEB SCH ×3 (13:26→19:30)
[2020-09-16] MEDS: FUROSEMIDE 40 MG/4 ML VIAL IV SCH (18:00)
[2020-09-16 18:32] VITALS: BP 129/75
[2020-09-16] MEDS: NOREPINEPHRINE 8 MG/250ML KIT 250 ML IV SCH (20:00)
[2020-09-16 21:59] VITALS: BP 129/66
[2020-09-17] VITALS (7 sets, daily range): BP systolic 134–142; BP diastolic 62–85
[2020-09-17] MEDS: ACETAMINOPHEN 650 MG RECT SUPP PR PRN ×2 (05:54→22:31)
[2020-09-17] MEDS: FUROSEMIDE 40 MG/4 ML VIAL IV SCH ×3 (06:00→22:00)
[2020-09-17] MEDS: IPRATROPIUM BROM 0.5 MG/2.5ML INH SOL NEB SCH ×3 (07:40→19:18)
[2020-09-17] MEDS: ALBUTEROL SULF 2.5 MG/0.5ML(0.5%) NEB SOLN NEB SCH ×3 (07:40→19:18)
[2020-09-17 08:50] LABS: Basophils # (auto) 0 10 ^3/uL (0-0.2); Eosinophils # (auto) 0.1 10 ^3/uL (0-0.8); Eosinophils % (auto) 1.1 % (0.0-7.0); Hemoglobin 16.1 g/dL (13.5-17.5)
[2020-09-17 08:53] LABS: Basophils % (auto) 0.4 % (0.0-2.0); Hematocrit 52.7 % (41.0-53.0); Lymphocytes # (auto) 0.9 10 ^3/uL (0.4-5.4); Lymphocytes % (auto) 7.8 % (10.0-50.0); Mean Corpuscular Hemoglobin 26.1 pg (28.0-32.0); Mean Corpuscular Hgb Conc. 30.5 g/dL (32.0-36.0); Mean Corpuscular Volume 85.6 fL (80.0-100.0); Monocytes % (auto) 9.1 % (0.0-12.0); Neutrophils # (auto) 9.1 10 ^3/uL (1.6-8.6); Neutrophils % (auto) 81.6 % (37.0-80.0); Nucleated Red Blood Cells % 0.1 %; Platelet Count (auto) 205 10^3/uL (140-450); Red Blood Cells 6.16 10^6/uL (4.5-5.90); White Blood Cell 11.1 10^3/uL (4.4-10.8)
[2020-09-17 08:54] LABS: Red Cell Distribution Width 20.5 % (11.8-14.3)
[2020-09-17 09:09] LABS: BUN/Creatinine Ratio 18.1; Calcium 8.7 mg/dL (8.5-10.1); Magnesium 2.6 mg/dL (1.6-2.6); Potassium 3.6 mmol/L (3.5-5.1)
[2020-09-17] MEDS ORDERED: POTASSIUM CHL 20MEQ/100ML 100 ML IV SCH (10:30)
[2020-09-17] MEDS: MIDAZOLAM DRIP 50 mg/50mL 50 ML IV SCH ×3 (13:22→22:05)
[2020-09-17] MEDS: levoFLOXacin 500MG 100 ML IV SCH (13:27)
[2020-09-17] MEDS: ENOXAPARIN SOD 40 MG/0.4 ML SYRINGE SC SCH (13:29)
[2020-09-17] MEDS: ACETAMINOPHEN 325 MG TAB PO PRN (18:16)
[2020-09-17] MEDS: NOREPINEPHRINE 8 MG/250ML KIT 250 ML IV SCH (20:00)
[2020-09-17] MEDS: fentaNYL Drip 2500mCg/250mlNS 250 ML IV SCH (22:00)
[2020-09-18] VITALS (7 sets, daily range): BP systolic 101–122; BP diastolic 48–72
[2020-09-18] MEDS: ALBUTEROL SULF 2.5 MG/0.5ML(0.5%) NEB SOLN NEB SCH ×5 (02:17→23:00)
[2020-09-18] MEDS: IPRATROPIUM BROM 0.5 MG/2.5ML INH SOL NEB SCH ×5 (02:17→23:00)
[2020-09-18] MEDS: MIDAZOLAM DRIP 50 mg/50mL 50 ML IV SCH ×5 (02:36→20:27)
[2020-09-18] MEDS: ACETAMINOPHEN 650 MG RECT SUPP PR PRN (06:04)
[2020-09-18] MEDS: FUROSEMIDE 40 MG/4 ML VIAL IV SCH ×3 (07:48→22:00)
[2020-09-18] MEDS: levoFLOXacin 500MG 100 ML IV SCH (10:00)
[2020-09-18 10:54] LABS: Calcium 8.6 mg/dL (8.5-10.1); Potassium 3.6 mmol/L (3.5-5.1)
[2020-09-18 10:57] LABS: BUN/Creatinine Ratio 18.6; Magnesium 2.6 mg/dL (1.6-2.6)
[2020-09-18] MEDS: fentaNYL Drip 2500mCg/250mlNS 250 ML IV SCH (11:27)
[2020-09-18] MEDS: PANTOPRAZOLE 40 MG/10 ML VIAL INJ IV SCH (11:44)
[2020-09-18] MEDS: ENOXAPARIN SOD 40 MG/0.4 ML SYRINGE SC SCH (11:45)
[2020-09-18] MEDS ORDERED: ENOXAPARIN SOD 60 MG/0.6 ML SYRINGE SC ONE (14:45)
[2020-09-18] MEDS: PIPERACILLIN-TAZOB 3.375GM 100 ML IV SCH ×2 (14:47→22:00)
[2020-09-18] MEDS: ENOXAPARIN SOD 150 MG/1 ML SYRINGE SC SCH (22:00)
[2020-09-19] MEDS: MIDAZOLAM DRIP 50 mg/50mL 50 ML IV SCH (01:25)
[2020-09-19] MEDS: fentaNYL Drip 2500mCg/250mlNS 250 ML IV SCH (01:26)
[2020-09-19 02:32] VITALS: BP 114/68
[2020-09-19] MEDS: HEPARIN DRIP/D5W 100UNITS/ML 250 ML IV SCH ×2 (02:35→14:06)
[2020-09-19] MEDS: ACETAMINOPHEN 650 MG RECT SUPP PR PRN (04:34)
[2020-09-19 06:33] LABS: Eosinophils # (auto) 0.1 10 ^3/uL (0-0.8); Lymphocytes % (auto) 6.8 % (10.0-50.0); Mean Corpuscular Hgb Conc. 30.9 g/dL (32.0-36.0)
[2020-09-19 06:37] LABS: Basophils # (auto) 0 10 ^3/uL (0-0.2); Basophils % (auto) 0.2 % (0.0-2.0); Eosinophils % (auto) 0.8 % (0.0-7.0); Hematocrit 50.1 % (41.0-53.0); Hemoglobin 15.4 g/dL (13.5-17.5); Lymphocytes # (auto) 0.8 10 ^3/uL (0.4-5.4); Mean Corpuscular Hemoglobin 26.6 pg (28.0-32.0); Mean Corpuscular Volume 86.2 fL (80.0-100.0); Monocytes # (auto) 1.3 10 ^3/uL (0-1.3); Monocytes % (auto) 10.5 % (0.0-12.0); Neutrophils % (auto) 81.7 % (37.0-80.0); Nucleated Red Blood Cells % 0.5 %; Platelet Count (auto) 224 10^3/uL (140-450); White Blood Cell 12.2 10^3/uL (4.4-10.8)
[2020-09-19 06:40] VITALS: BP 120/67
[2020-09-19] MEDS: IPRATROPIUM BROM 0.5 MG/2.5ML INH SOL NEB SCH ×3 (06:40→18:40)
[2020-09-19] MEDS: ALBUTEROL SULF 2.5 MG/0.5ML(0.5%) NEB SOLN NEB SCH ×3 (06:40→18:40)
[2020-09-19 06:51] LABS: Red Cell Distribution Width 20.1 % (11.8-14.3)
[2020-09-19 07:01] LABS: Calcium 8.5 mg/dL (8.5-10.1); Chloride 94 mmol/L (98-107); Potassium 3.4 mmol/L (3.5-5.1); Sodium 136 mmol/L (136-145)
[2020-09-19 07:14] LABS: Alanine Aminotransferase 41 U/L (16-61); Albumin 2.2 g/dL (3.4-5.0); Alkaline Phosphatase 123 U/L (45-117); Anion Gap 6 (5-15); Aspartate Aminotransferase 157 U/L (15-37); BUN/Creatinine Ratio 20.5; Bilirubin, Total 1.2 mg/dL (0.2-1.0); Blood Urea Nitrogen 23 mg/dL (7-18); Carbon Dioxide 36 mmol/L (21-32); GFR African American 94 mL/min; GFR Non-African American 78 mL/min; Glucose 106 mg/dL (74-106); Total Protein 7.2 g/dL (6.4-8.2)
[2020-09-19 07:22] LABS: CRP High Sensitivity > 19.0 mg/dL (< 0.3)
[2020-09-19] MEDS: NOREPINEPHRINE 8 MG/250ML KIT 250 ML IV SCH ×2 (08:12→22:40)
[2020-09-19] MEDS: FUROSEMIDE 40 MG/4 ML VIAL IV SCH ×3 (08:43→22:45)
[2020-09-19] MEDS: levoFLOXacin 500MG 100 ML IV SCH (08:43)
[2020-09-19] MEDS: PIPERACILLIN-TAZOB 3.375GM 100 ML IV SCH ×3 (08:43→22:45)
[2020-09-19] MEDS: PANTOPRAZOLE 40 MG/10 ML VIAL INJ IV SCH (08:44)
[2020-09-19] MEDS: ENOXAPARIN SOD 150 MG/1 ML SYRINGE SC SCH (08:44)
[2020-09-19 10:00] VITALS: BP 71/67
[2020-09-19 12:35] LABS: INR 1.15 (0.9-1.15); Partial Thromboplastin Time 34.3 sec (23.0-31.2)
[2020-09-19 14:05] VITALS: BP 107/67
[2020-09-19 19:00] VITALS: BP 104/66
[2020-09-19 21:24] LABS: INR 1.14 (0.9-1.15); Partial Thromboplastin Time 46.5 sec (23.0-31.2)
[2020-09-19 22:40] VITALS: BP 111/64
[2020-09-20] VITALS (7 sets, daily range): BP systolic 115–157; BP diastolic 64–120
[2020-09-20 02:28] LABS: INR 1.12 (0.9-1.15); Partial Thromboplastin Time 47.5 sec (23.0-31.2)
[2020-09-20 06:01] LABS: Basophils # (auto) 0 10 ^3/uL (0-0.2); Basophils % (auto) 0.3 % (0.0-2.0); Eosinophils # (auto) 0.3 10 ^3/uL (0-0.8); Eosinophils % (auto) 2.4 % (0.0-7.0); Hematocrit 46.9 % (41.0-53.0); Hemoglobin 14.6 g/dL (13.5-17.5); Lymphocytes # (auto) 0.7 10 ^3/uL (0.4-5.4); Lymphocytes % (auto) 5.9 % (10.0-50.0); Mean Corpuscular Hemoglobin 27.1 pg (28.0-32.0); Mean Corpuscular Hgb Conc. 31.1 g/dL (32.0-36.0); Mean Corpuscular Volume 87.1 fL (80.0-100.0); Monocytes # (auto) 1.3 10 ^3/uL (0-1.3); Neutrophils # (auto) 9.5 10 ^3/uL (1.6-8.6); Neutrophils % (auto) 80.4 % (37.0-80.0); Nucleated Red Blood Cells % 0.1 %; Platelet Count (auto) 206 10^3/uL (140-450); Red Blood Cells 5.38 10^6/uL (4.5-5.90); Red Cell Distribution Width 19.6 % (11.8-14.3); White Blood Cell 11.8 10^3/uL (4.4-10.8)
[2020-09-20 06:05] LABS: INR 1.16 (0.9-1.15); Partial Thromboplastin Time 40.3 sec (23.0-31.2)
[2020-09-20 06:14] LABS: BUN/Creatinine Ratio 27.7; Potassium 3.2 mmol/L (3.5-5.1)
[2020-09-20] MEDS: IPRATROPIUM BROM 0.5 MG/2.5ML INH SOL NEB SCH ×4 (06:25→18:40)
[2020-09-20] MEDS: ALBUTEROL SULF 2.5 MG/0.5ML(0.5%) NEB SOLN NEB SCH ×4 (06:25→18:40)
[2020-09-20] MEDS: HEPARIN DRIP/D5W 100UNITS/ML 250 ML IV SCH (06:28)
[2020-09-20] MEDS: ACETAMINOPHEN 650 MG RECT SUPP PR PRN ×3 (06:28→22:05)
[2020-09-20] MEDS: FUROSEMIDE 40 MG/4 ML VIAL IV SCH ×3 (06:30→22:04)
[2020-09-20] MEDS: PIPERACILLIN-TAZOB 3.375GM 100 ML IV SCH ×3 (06:30→22:04)
[2020-09-20] MEDS: levoFLOXacin 500MG 100 ML IV SCH (09:27)
[2020-09-20] MEDS: PANTOPRAZOLE 40 MG/10 ML VIAL INJ IV SCH (09:28)
[2020-09-20] MEDS ORDERED: VANCOMYCIN PER PHARMACY 0 MG IV SCH (11:00)
[2020-09-20 13:37] LABS: INR 1.13 (0.9-1.15); Partial Thromboplastin Time 50.7 sec (23.0-31.2)
[2020-09-20] MEDS: VANCOMYCIN 1GM/250ML 250 ML IV SCH (17:25)
[2020-09-20] MEDS: POTASSIUM CHL 20MEQ/100ML 100 ML IV SCH (18:43)
[2020-09-20] MEDS: MIDAZOLAM DRIP 50 mg/50mL 50 ML IV SCH (18:53)
[2020-09-20] MEDS: NOREPINEPHRINE 8 MG/250ML KIT 250 ML IV SCH (18:54)
[2020-09-20] MEDS: fentaNYL Drip 2500mCg/250mlNS 250 ML IV SCH (18:55)
[2020-09-20 20:22] LABS: INR 1.13 (0.9-1.15); Partial Thromboplastin Time 52.7 sec (23.0-31.2)
[2020-09-21] VITALS (8 sets, daily range): BP systolic 95–125; BP diastolic 48–78
[2020-09-21] MEDS: IPRATROPIUM BROM 0.5 MG/2.5ML INH SOL NEB SCH ×4 (00:26→19:33)
[2020-09-21] MEDS: ALBUTEROL SULF 2.5 MG/0.5ML(0.5%) NEB SOLN NEB SCH ×4 (00:26→19:33)
[2020-09-21] MEDS: VANCOMYCIN 1GM/250ML 250 ML IV SCH ×3 (01:01→18:35)
[2020-09-21] MEDS: HEPARIN DRIP/D5W 100UNITS/ML 250 ML IV SCH ×2 (01:07→15:45)
[2020-09-21 02:02] LABS: INR 1.14 (0.9-1.15); Partial Thromboplastin Time 54.5 sec (23.0-31.2)
[2020-09-21] MEDS ORDERED: fentaNYL Drip 2500mCg/250mlNS 250 ML IV ONE (02:43)
[2020-09-21] MEDS: FUROSEMIDE 40 MG/4 ML VIAL IV SCH (03:08)
[2020-09-21] MEDS ORDERED: MIDAZOLAM DRIP 50 mg/50mL 50 ML IV ONE ×2 (03:34→12:11)
[2020-09-21] MEDS ORDERED: METRONIDAZOLE 500 MG/100 ML IV ONE (04:45)
[2020-09-21] MEDS ORDERED: ACETAMINOPHEN 650 MG RECT SUPP PR ONE (04:46)
[2020-09-21] MEDS: ACETAMINOPHEN 650 MG RECT SUPP PR PRN ×2 (04:50→15:02)
[2020-09-21] MEDS ORDERED: POTASSIUM CHL 20MEQ/100ML 100 ML IV ONE (05:43)
[2020-09-21] MEDS ORDERED: PIPERACILLIN-TAZOB 3.375GM 100 ML IV ONE (05:46)
[2020-09-21] MEDS ORDERED: HEPARIN DRIP/D5W 100UNITS/ML 250 ML IV ONE (05:46)
[2020-09-21 06:01] LABS: Calcium 8.7 mg/dL (8.5-10.1); Potassium 3.2 mmol/L (3.5-5.1)
[2020-09-21 06:03] LABS: BUN/Creatinine Ratio 18.3
[2020-09-21] MEDS: POTASSIUM CHL 20MEQ/100ML 100 ML IV SCH ×2 (06:03→18:36)
[2020-09-21] MEDS: PIPERACILLIN-TAZOB 3.375GM 100 ML IV SCH (06:10)
[2020-09-21] MEDS ORDERED: MIDAZOLAM HCL 0 ML IV ONE (11:49)
[2020-09-21] MEDS: PANTOPRAZOLE 40 MG/10 ML VIAL INJ IV SCH (13:42)
[2020-09-21] MEDS: DOXYCYCLINE 100MG/250ML 250 ML IV SCH (14:42)
[2020-09-21] MEDS: levoFLOXacin 500MG 100 ML IV SCH (14:43)
[2020-09-21] MEDS: fentaNYL Drip 2500mCg/250mlNS 250 ML IV SCH (19:41)
[2020-09-21] MEDS: MIDAZOLAM DRIP 50 mg/50mL 50 ML IV SCH (19:43)
[2020-09-22] VITALS (88 sets, daily range): BP systolic 82–152; BP diastolic 42–100
[2020-09-22 01:22] LABS: Basophils # (auto) 0 10 ^3/uL (0-0.2); Basophils % (auto) 0.2 % (0.0-2.0); Eosinophils # (auto) 0.2 10 ^3/uL (0-0.8); Eosinophils % (auto) 1.3 % (0.0-7.0); Hematocrit 42.2 % (41.0-53.0); Hemoglobin 13.4 g/dL (13.5-17.5); Lymphocytes # (auto) 0.9 10 ^3/uL (0.4-5.4); Lymphocytes % (auto) 7.4 % (10.0-50.0); Mean Corpuscular Hemoglobin 27.3 pg (28.0-32.0); Mean Corpuscular Hgb Conc. 31.7 g/dL (32.0-36.0); Mean Corpuscular Volume 86.1 fL (80.0-100.0); Monocytes # (auto) 1.5 10 ^3/uL (0-1.3); Monocytes % (auto) 11.8 % (0.0-12.0); Neutrophils # (auto) 9.9 10 ^3/uL (1.6-8.6); Neutrophils % (auto) 79.3 % (37.0-80.0); Nucleated Red Blood Cells % 0.1 %; Platelet Count (auto) 227 10^3/uL (140-450); Red Blood Cells 4.91 10^6/uL (4.5-5.90); Red Cell Distribution Width 19.8 % (11.8-14.3); White Blood Cell 12.4 10^3/uL (4.4-10.8)
[2020-09-22] MEDS: HEPARIN DRIP/D5W 100UNITS/ML 250 ML IV SCH ×3 (01:30→19:50)
[2020-09-22] MEDS: MIDAZOLAM DRIP 50 mg/50mL 50 ML IV SCH ×4 (01:30→23:25)
[2020-09-22 01:38] LABS: BUN/Creatinine Ratio 28.9; Calcium 8.6 mg/dL (8.5-10.1); Magnesium 2.8 mg/dL (1.6-2.6); Potassium 3.6 mmol/L (3.5-5.1)
[2020-09-22 01:40] LABS: Bilirubin, Total 0.9 mg/dL (0.2-1.0); Total Protein 7.1 g/dL (6.4-8.2)
[2020-09-22] MEDS: ALBUTEROL SULF 2.5 MG/0.5ML(0.5%) NEB SOLN NEB SCH ×4 (01:57→18:39)
[2020-09-22] MEDS: IPRATROPIUM BROM 0.5 MG/2.5ML INH SOL NEB SCH ×4 (01:57→18:39)
[2020-09-22] MEDS: VANCOMYCIN 1GM/250ML 250 ML IV SCH ×3 (03:00→19:52)
[2020-09-22] MEDS: DOXYCYCLINE 100MG/250ML 250 ML IV SCH ×3 (03:00→23:32)
[2020-09-22] MEDS: ACETAMINOPHEN 325 MG TAB PO PRN ×2 (03:25→10:50)
[2020-09-22] MEDS: fentaNYL Drip 2500mCg/250mlNS 250 ML IV SCH ×2 (03:48→15:27)
[2020-09-22 05:10] LABS: INR 1.14 (0.9-1.15); Partial Thromboplastin Time 41.4 sec (23.0-31.2)
[2020-09-22] MEDS: POTASSIUM CHL 20MEQ/100ML 100 ML IV SCH ×2 (05:26→18:25)
[2020-09-22] MEDS: NOREPINEPHRINE 8 MG/250ML KIT 250 ML IV SCH ×2 (09:39→15:00)
[2020-09-22] MEDS: FUROSEMIDE 40 MG/4 ML VIAL IV SCH ×2 (09:50→22:00)
[2020-09-22] MEDS: PANTOPRAZOLE 40 MG/10 ML VIAL INJ IV SCH (09:51)
[2020-09-22] MEDS: levoFLOXacin 500MG 100 ML IV SCH (09:51)
[2020-09-22] MEDS: PROPOFOL 100 ML IV SCH ×2 (10:55→18:55)
[2020-09-22 13:55] LABS: INR 1.18 (0.9-1.15); Partial Thromboplastin Time 52.9 sec (23.0-31.2)
[2020-09-22] MEDS ORDERED: CATHFLO ACTIVASE (ALTEPLASE) 2 MG VIAL IV ONE (15:15)
[2020-09-22 17:57] LABS: Eosinophils # (auto) 0.2 10 ^3/uL (0-0.8); Hematocrit 40.2 % (41.0-53.0); Hemoglobin 12.4 g/dL (13.5-17.5); Mean Corpuscular Hgb Conc. 30.8 g/dL (32.0-36.0)
[2020-09-22 17:59] LABS: Basophils # (auto) 0 10 ^3/uL (0-0.2); Basophils % (auto) 0.3 % (0.0-2.0); Eosinophils % (auto) 1.8 % (0.0-7.0); Lymphocytes % (auto) 7.5 % (10.0-50.0); Mean Corpuscular Hemoglobin 26.9 pg (28.0-32.0); Mean Corpuscular Volume 87.3 fL (80.0-100.0); Monocytes # (auto) 1.5 10 ^3/uL (0-1.3); Monocytes % (auto) 11.8 % (0.0-12.0); Neutrophils # (auto) 10.3 10 ^3/uL (1.6-8.6); Neutrophils % (auto) 78.6 % (37.0-80.0); Platelet Count (auto) 217 10^3/uL (140-450); Red Cell Distribution Width 19.4 % (11.8-14.3); White Blood Cell 13.1 10^3/uL (4.4-10.8)
[2020-09-22 19:13] LABS: INR 1.19 (0.9-1.15); Partial Thromboplastin Time 69.2 sec (23.0-31.2)
[2020-09-22] MEDS: Glucerna 1.2 Cal 1Liter BOTTLE GT SCH (19:51)
[2020-09-23] VITALS (86 sets, daily range): BP systolic 80–135; BP diastolic 50–95
[2020-09-23] MEDS: ALBUTEROL SULF 2.5 MG/0.5ML(0.5%) NEB SOLN NEB SCH ×4 (00:01→18:00)
[2020-09-23] MEDS: IPRATROPIUM BROM 0.5 MG/2.5ML INH SOL NEB SCH ×4 (00:01→18:00)
[2020-09-23 01:45] LABS: INR 1.16 (0.9-1.15); Partial Thromboplastin Time 58.1 sec (23.0-31.2)
[2020-09-23] MEDS: VANCOMYCIN 1GM/250ML 250 ML IV SCH ×3 (03:00→18:23)
[2020-09-23 04:06] LABS: Basophils # (auto) 0.1 10 ^3/uL (0-0.2); Basophils % (auto) 0.6 % (0.0-2.0); Eosinophils # (auto) 0.3 10 ^3/uL (0-0.8); Hematocrit 43.2 % (41.0-53.0); Hemoglobin 13.4 g/dL (13.5-17.5); Lymphocytes # (auto) 0.9 10 ^3/uL (0.4-5.4); Lymphocytes % (auto) 6.7 % (10.0-50.0); Mean Corpuscular Volume 87.3 fL (80.0-100.0); Monocytes # (auto) 1.5 10 ^3/uL (0-1.3); Monocytes % (auto) 10.5 % (0.0-12.0); Neutrophils # (auto) 11.4 10 ^3/uL (1.6-8.6); Neutrophils % (auto) 80.2 % (37.0-80.0); Platelet Count (auto) 248 10^3/uL (140-450); Red Blood Cells 4.95 10^6/uL (4.5-5.90); Red Cell Distribution Width 19.6 % (11.8-14.3); White Blood Cell 14.2 10^3/uL (4.4-10.8)
[2020-09-23] MEDS: HEPARIN DRIP/D5W 100UNITS/ML 250 ML IV SCH ×2 (04:23→20:35)
[2020-09-23 04:24] LABS: Albumin 1.9 g/dL (3.4-5.0); Anion Gap 9 (5-15); Blood Urea Nitrogen 53 mg/dL (7-18); Calcium 9.2 mg/dL (8.5-10.1); Carbon Dioxide 33 mmol/L (21-32); Chloride 94 mmol/L (98-107); Glucose 110 mg/dL (74-106); Potassium 3.5 mmol/L (3.5-5.1); Sodium 136 mmol/L (136-145)
[2020-09-23] MEDS: fentaNYL Drip 2500mCg/250mlNS 250 ML IV SCH ×2 (04:24→14:39)
[2020-09-23 04:34] LABS: Alanine Aminotransferase 21 U/L (16-61); Alkaline Phosphatase 145 U/L (45-117); Aspartate Aminotransferase 31 U/L (15-37); BUN/Creatinine Ratio 40.8; Bilirubin, Total 0.6 mg/dL (0.2-1.0); GFR African American 79 mL/min; GFR Non-African American 66 mL/min; Total Protein 7.5 g/dL (6.4-8.2)
[2020-09-23 04:40] LABS: CRP High Sensitivity > 19.0 mg/dL (< 0.3)
[2020-09-23] MEDS: POTASSIUM CHL 20MEQ/100ML 100 ML IV SCH ×2 (05:35→17:12)
[2020-09-23 08:05] LABS: INR 1.13 (0.9-1.15); Partial Thromboplastin Time 50.6 sec (23.0-31.2)
[2020-09-23] MEDS: MIDAZOLAM DRIP 50 mg/50mL 50 ML IV SCH ×2 (09:11→20:31)
[2020-09-23] MEDS: PROPOFOL 100 ML IV SCH ×2 (09:11→20:30)
[2020-09-23] MEDS: FUROSEMIDE 40 MG/4 ML VIAL IV SCH ×2 (09:33→22:28)
[2020-09-23] MEDS: PANTOPRAZOLE 40 MG/10 ML VIAL INJ IV SCH (09:34)
[2020-09-23] MEDS: levoFLOXacin 500MG 100 ML IV SCH (09:34)
[2020-09-23] MEDS: DOXYCYCLINE 100MG/250ML 250 ML IV SCH (12:50)
[2020-09-23] MEDS: NOREPINEPHRINE 8 MG/250ML KIT 250 ML IV SCH (20:00)
[2020-09-24] VITALS (73 sets, daily range): BP systolic 75–133; BP diastolic 42–90
[2020-09-24] MEDS: MIDAZOLAM DRIP 50 mg/50mL 50 ML IV SCH ×3 (00:46→22:23)
[2020-09-24] MEDS: PROPOFOL 100 ML IV SCH ×6 (01:09→22:23)
[2020-09-24] MEDS: VANCOMYCIN 1GM/250ML 250 ML IV SCH ×2 (03:00→11:13)
[2020-09-24] MEDS: fentaNYL Drip 2500mCg/250mlNS 250 ML IV SCH ×2 (03:34→15:24)
[2020-09-24 04:50] LABS: Basophils # (auto) 0 10 ^3/uL (0-0.2); Basophils % (auto) 0.1 % (0.0-2.0); Eosinophils # (auto) 0.4 10 ^3/uL (0-0.8); Eosinophils % (auto) 3.6 % (0.0-7.0); Hematocrit 42.8 % (41.0-53.0); Hemoglobin 13.4 g/dL (13.5-17.5); Lymphocytes # (auto) 0.6 10 ^3/uL (0.4-5.4); Lymphocytes % (auto) 5.6 % (10.0-50.0); Mean Corpuscular Hgb Conc. 31.2 g/dL (32.0-36.0); Mean Corpuscular Volume 86.7 fL (80.0-100.0); Monocytes # (auto) 1.1 10 ^3/uL (0-1.3); Monocytes % (auto) 10.1 % (0.0-12.0); Neutrophils % (auto) 80.6 % (37.0-80.0); Nucleated Red Blood Cells % 0.1 %; Platelet Count (auto) 292 10^3/uL (140-450); Red Blood Cells 4.94 10^6/uL (4.5-5.90); Red Cell Distribution Width 19.4 % (11.8-14.3); White Blood Cell 11.2 10^3/uL (4.4-10.8)
[2020-09-24 05:02] LABS: INR 1.16 (0.9-1.15); Partial Thromboplastin Time 40.9 sec (23.0-31.2)
[2020-09-24 05:03] LABS: BUN/Creatinine Ratio 36.1; Calcium 9.2 mg/dL (8.5-10.1); Potassium 3.8 mmol/L (3.5-5.1)
[2020-09-24] MEDS: HEPARIN DRIP/D5W 100UNITS/ML 250 ML IV SCH ×2 (05:16→21:23)
[2020-09-24] MEDS: POTASSIUM CHL 20MEQ/100ML 100 ML IV SCH ×2 (06:00→17:48)
[2020-09-24] MEDS: IPRATROPIUM BROM 0.5 MG/2.5ML INH SOL NEB SCH ×4 (06:51→18:00)
[2020-09-24] MEDS: ALBUTEROL SULF 2.5 MG/0.5ML(0.5%) NEB SOLN NEB SCH ×4 (06:51→18:00)
[2020-09-24] MEDS: FUROSEMIDE 40 MG/4 ML VIAL IV SCH ×3 (10:00→22:15)
[2020-09-24] MEDS ORDERED: FLUMAZENIL 0.1 MG/ML INJ 10ML MDV IV ONE (10:25)
[2020-09-24] MEDS ORDERED: LIDOCAINE 2%HCL (LOCAL ANESTH.) INJ 20ML MDV ONE (10:26)
[2020-09-24] MEDS ORDERED: SODIUM CHLORIDE LOCK 30 ML ONE (10:26)
[2020-09-24] MEDS ORDERED: EPINEPHrine HCL 1 MG/1 ML AMP ONE (10:26)
[2020-09-24] MEDS ORDERED: LIDOCAINE HCL 2% TOP JELLY 5ML TOP ONE (10:26)
[2020-09-24] MEDS: levoFLOXacin 500MG 100 ML IV SCH (11:14)
[2020-09-24] MEDS: PANTOPRAZOLE 40 MG/10 ML VIAL INJ IV SCH (11:14)
[2020-09-24] MEDS ORDERED: ALBUMIN 25% 100 ML IV ONE (12:45)
[2020-09-24] MEDS: DOXYCYCLINE 100MG/250ML 250 ML IV SCH ×2 (15:18)
[2020-09-24] MEDS ORDERED: CLINDAMYCIN 600MG IV 50 ML IV ONE (16:15)
[2020-09-24] MEDS ORDERED: PENICILLIN G POTASSIUM 4,000,000 UNITS in D5W 5% 50 ML IV SCH (18:00)
[2020-09-24 18:54] LABS: INR 1.1 (0.9-1.15); Partial Thromboplastin Time 32.8 sec (23.0-31.2)
[2020-09-24 19:13] LABS: Urine Amorphous Crystal FEW /hpf (None Seen); Urine Bacteria FEW /hpf (None Seen); Urine Blood 3+ /uL (Negative); Urine Specific Gravity 1.015 (1.001-1.035); Urine WBC 24 /hpf (0 - 3); Urine WBC Clumps PRESENT /hpf (None Seen)
[2020-09-24 19:27] LABS: Hematocrit 39.9 % (41.0-53.0); Hemoglobin 12.5 g/dL (13.5-17.5)
[2020-09-24] MEDS: CLINDAMYCIN 600MG IV 50 ML IV SCH (22:16)
[2020-09-24] MEDS: PENICILLIN G POTASSIUM 4,000,000 UNITS in D5W 5% 50 ML IV SCH (23:03)
[2020-09-24] MEDS: NOREPINEPHRINE 8 MG/250ML KIT 250 ML IV SCH (23:56)
[2020-09-25] VITALS (89 sets, daily range): BP systolic 90–157; BP diastolic 40–92
[2020-09-25 01:58] LABS: INR 1.18 (0.9-1.15); Partial Thromboplastin Time 34.6 sec (23.0-31.2)
[2020-09-25] MEDS: PROPOFOL 100 ML IV SCH ×4 (02:01→17:48)
[2020-09-25] MEDS: MIDAZOLAM DRIP 50 mg/50mL 50 ML IV SCH ×4 (02:24→18:00)
[2020-09-25] MEDS: PENICILLIN G POTASSIUM 4,000,000 UNITS in D5W 5% 50 ML IV SCH ×6 (03:00→23:00)
[2020-09-25] MEDS ORDERED: HEPARIN SODIUM (PORCINE) 5000 UNITS/ML 1ML VIAL ONE ×3 (03:04→11:12)
[2020-09-25] MEDS ORDERED: HEPARIN SODIUM (PORCINE) 5000 UNITS/ML 1ML VIAL IV ONE ×2 (03:15→11:30)
[2020-09-25 03:48] LABS: Basophils # (auto) 0 10 ^3/uL (0-0.2); Hemoglobin 12.1 g/dL (13.5-17.5)
[2020-09-25 03:50] LABS: Basophils % (auto) 0.1 % (0.0-2.0); Eosinophils # (auto) 0.4 10 ^3/uL (0-0.8); Eosinophils % (auto) 4.2 % (0.0-7.0); Hematocrit 39.1 % (41.0-53.0); Lymphocytes # (auto) 0.8 10 ^3/uL (0.4-5.4); Lymphocytes % (auto) 8.7 % (10.0-50.0); Mean Corpuscular Hemoglobin 26.5 pg (28.0-32.0); Mean Corpuscular Volume 85.6 fL (80.0-100.0); Monocytes # (auto) 1.1 10 ^3/uL (0-1.3); Monocytes % (auto) 12.6 % (0.0-12.0); Neutrophils # (auto) 6.8 10 ^3/uL (1.6-8.6); Neutrophils % (auto) 74.4 % (37.0-80.0); Platelet Count (auto) 320 10^3/uL (140-450); Red Blood Cells 4.57 10^6/uL (4.5-5.90); Red Cell Distribution Width 19.4 % (11.8-14.3); White Blood Cell 9.1 10^3/uL (4.4-10.8)
[2020-09-25] MEDS: fentaNYL Drip 2500mCg/250mlNS 250 ML IV SCH (03:52)
[2020-09-25 04:11] LABS: Calcium 8.8 mg/dL (8.5-10.1); Potassium 3.4 mmol/L (3.5-5.1)
[2020-09-25] MEDS: POTASSIUM CHL 20MEQ/100ML 100 ML IV SCH ×2 (05:45→17:47)
[2020-09-25] MEDS: ALBUTEROL SULF 2.5 MG/0.5ML(0.5%) NEB SOLN NEB SCH ×4 (05:45→18:00)
[2020-09-25] MEDS: IPRATROPIUM BROM 0.5 MG/2.5ML INH SOL NEB SCH ×4 (05:45→18:00)
[2020-09-25] MEDS: CLINDAMYCIN 600MG IV 50 ML IV SCH ×3 (05:46→22:14)
[2020-09-25] MEDS ORDERED: POTASSIUM CHL 20MEQ/100ML 100 ML IV ONE (08:00)
[2020-09-25] MEDS: NOREPINEPHRINE 8 MG/250ML KIT 250 ML IV SCH ×2 (08:19→17:59)
[2020-09-25] MEDS: SODIUM CHLORIDE 0.9% 1,000 ML IV SCH (08:19)
[2020-09-25] MEDS: HEPARIN DRIP/D5W 100UNITS/ML 250 ML IV SCH ×2 (08:29→23:34)
[2020-09-25 10:21] LABS: INR 1.11 (0.9-1.15); Partial Thromboplastin Time 34.7 sec (23.0-31.2)
[2020-09-25] MEDS: AZITHROMYCIN 500MG/ 250ML 250 ML IV SCH (10:33)
[2020-09-25] MEDS: PANTOPRAZOLE 40 MG/10 ML VIAL INJ IV SCH (10:34)
[2020-09-25] MEDS: ACETAMINOPHEN 325 MG TAB PO PRN (16:57)
[2020-09-25 18:04] LABS: INR 1.14 (0.9-1.15)
[2020-09-25 23:31] LABS: INR 1.13 (0.9-1.15); Partial Thromboplastin Time 66.7 sec (23.0-31.2)
[2020-09-26] VITALS (72 sets, daily range): BP systolic 87–125; BP diastolic 51–85
[2020-09-26] MEDS: ALBUTEROL SULF 2.5 MG/0.5ML(0.5%) NEB SOLN NEB SCH ×3 (01:09→19:33)
[2020-09-26] MEDS: IPRATROPIUM BROM 0.5 MG/2.5ML INH SOL NEB SCH ×3 (01:09→19:33)
[2020-09-26] MEDS: PENICILLIN G POTASSIUM 4,000,000 UNITS in D5W 5% 50 ML IV SCH ×6 (03:22→22:32)
[2020-09-26 04:23] LABS: Basophils # (auto) 0 10 ^3/uL (0-0.2); Basophils % (auto) 0.2 % (0.0-2.0); Eosinophils # (auto) 0.5 10 ^3/uL (0-0.8); Eosinophils % (auto) 4.4 % (0.0-7.0); Lymphocytes # (auto) 0.7 10 ^3/uL (0.4-5.4); Lymphocytes % (auto) 6.7 % (10.0-50.0); Mean Corpuscular Hgb Conc. 31.5 g/dL (32.0-36.0); Mean Corpuscular Volume 85.5 fL (80.0-100.0); Monocytes # (auto) 1.5 10 ^3/uL (0-1.3); Monocytes % (auto) 13.9 % (0.0-12.0); Neutrophils # (auto) 7.9 10 ^3/uL (1.6-8.6); Neutrophils % (auto) 74.8 % (37.0-80.0); Nucleated Red Blood Cells % 0.1 %; Platelet Count (auto) 315 10^3/uL (140-450); Red Blood Cells 4.44 10^6/uL (4.5-5.90); White Blood Cell 10.5 10^3/uL (4.4-10.8)
[2020-09-26 04:36] LABS: INR 1.13 (0.9-1.15)
[2020-09-26 04:44] LABS: Calcium 8.7 mg/dL (8.5-10.1); Potassium 3.6 mmol/L (3.5-5.1)
[2020-09-26 04:47] LABS: BUN/Creatinine Ratio 23.8
[2020-09-26] MEDS: CLINDAMYCIN 600MG IV 50 ML IV SCH ×3 (05:56→22:28)
[2020-09-26] MEDS: POTASSIUM CHL 20MEQ/100ML 100 ML IV SCH ×2 (06:00→17:55)
[2020-09-26] MEDS: HEPARIN DRIP/D5W 100UNITS/ML 250 ML IV SCH ×3 (08:02→22:30)
[2020-09-26] MEDS: PANTOPRAZOLE 40 MG/10 ML VIAL INJ IV SCH (09:28)
[2020-09-26] MEDS: AZITHROMYCIN 500MG/ 250ML 250 ML IV SCH (09:28)
[2020-09-26] MEDS: PROPOFOL 100 ML IV SCH ×4 (10:03→22:29)
[2020-09-26] MEDS: MIDAZOLAM DRIP 50 mg/50mL 50 ML IV SCH ×2 (11:21→17:56)
[2020-09-26] MEDS: NOREPINEPHRINE 8 MG/250ML KIT 250 ML IV SCH ×2 (12:37→22:08)
[2020-09-26] MEDS: fentaNYL Drip 2500mCg/250mlNS 250 ML IV SCH (15:00)
[2020-09-26] MEDS: SODIUM CHLORIDE 0.9% 1,000 ML IV SCH (17:54)
[2020-09-27] VITALS (87 sets, daily range): BP systolic 96–143; BP diastolic 55–88
[2020-09-27] MEDS: MIDAZOLAM DRIP 50 mg/50mL 50 ML IV SCH ×3 (01:22→21:00)
[2020-09-27] MEDS: Glucerna 1.2 Cal 1Liter BOTTLE GT SCH (01:23)
[2020-09-27] MEDS: PROPOFOL 100 ML IV SCH ×4 (02:54→22:15)
[2020-09-27] MEDS: PENICILLIN G POTASSIUM 4,000,000 UNITS in D5W 5% 50 ML IV SCH ×6 (03:00→23:23)
[2020-09-27] MEDS: fentaNYL Drip 2500mCg/250mlNS 250 ML IV SCH ×2 (04:24→19:11)
[2020-09-27] MEDS: NOREPINEPHRINE 8 MG/250ML KIT 250 ML IV SCH ×3 (04:26→23:00)
[2020-09-27 04:30] LABS: Mean Corpuscular Volume 86.2 fL (80.0-100.0)
[2020-09-27 04:34] LABS: Hematocrit 38.2 % (41.0-53.0); Hemoglobin 12.1 g/dL (13.5-17.5); Mean Corpuscular Hemoglobin 27.2 pg (28.0-32.0); Mean Corpuscular Hgb Conc. 31.6 g/dL (32.0-36.0); Platelet Count (auto) 370 10^3/uL (140-450); Red Blood Cells 4.44 10^6/uL (4.5-5.90); Red Cell Distribution Width 19.1 % (11.8-14.3); White Blood Cell 12.4 10^3/uL (4.4-10.8)
[2020-09-27 04:42] LABS: Basophils % (manual) 0 (0.0-2.0); Blast Cells 0; Metamyelocytes % 0; Myelocytes % 0; Promyelocytes % 0; Reactive Lymphocytes 0
[2020-09-27 04:45] LABS: INR 1.08 (0.9-1.15); Partial Thromboplastin Time 51.7 sec (23.0-31.2)
[2020-09-27 04:46] LABS: Potassium 4.1 mmol/L (3.5-5.1)
[2020-09-27 04:55] LABS: Albumin 1.8 g/dL (3.4-5.0); BUN/Creatinine Ratio 21.9; Bilirubin, Total 0.6 mg/dL (0.2-1.0); Calcium 8.4 mg/dL (8.5-10.1); Total Protein 6.7 g/dL (6.4-8.2)
[2020-09-27 05:26] LABS: Band Neutrophils % (manual) 2; Eosinophils % (manual) 4 (0-7); Lymphocytes % (manual) 8 (10.0-50.0); Monocytes % (manual) 6 (0-12)
[2020-09-27] MEDS: CLINDAMYCIN 600MG IV 50 ML IV SCH ×3 (06:00→21:30)
[2020-09-27] MEDS: POTASSIUM CHL 20MEQ/100ML 100 ML IV SCH ×2 (06:39→18:42)
[2020-09-27] MEDS: ACETAMINOPHEN 325 MG TAB PO PRN (06:57)
[2020-09-27] MEDS: IPRATROPIUM BROM 0.5 MG/2.5ML INH SOL NEB SCH ×5 (07:06→23:44)
[2020-09-27] MEDS: ALBUTEROL SULF 2.5 MG/0.5ML(0.5%) NEB SOLN NEB SCH ×5 (07:06→23:44)
[2020-09-27] MEDS: AZITHROMYCIN 500MG/ 250ML 250 ML IV SCH (09:37)
[2020-09-27] MEDS: PANTOPRAZOLE 40 MG/10 ML VIAL INJ IV SCH (09:37)
[2020-09-27] MEDS: ENOXAPARIN SOD 100 MG/1 ML SYRINGE SC SCH ×2 (10:03→21:31)
[2020-09-28] VITALS (62 sets, daily range): BP systolic 95–124; BP diastolic 51–78
[2020-09-28] MEDS: PROPOFOL 100 ML IV SCH ×2 (02:22→15:40)
[2020-09-28] MEDS: PENICILLIN G POTASSIUM 4,000,000 UNITS in D5W 5% 50 ML IV SCH ×6 (02:44→23:00)
[2020-09-28 03:42] LABS: Mean Corpuscular Hemoglobin 26.9 pg (28.0-32.0)
[2020-09-28 03:45] LABS: Hematocrit 36.1 % (41.0-53.0); Hemoglobin 11.3 g/dL (13.5-17.5); Mean Corpuscular Hgb Conc. 31.4 g/dL (32.0-36.0); Mean Corpuscular Volume 85.8 fL (80.0-100.0); Platelet Count (auto) 374 10^3/uL (140-450); Red Cell Distribution Width 19.3 % (11.8-14.3); White Blood Cell 12.2 10^3/uL (4.4-10.8)
[2020-09-28 04:04] LABS: Albumin 1.9 g/dL (3.4-5.0); Calcium 8.4 mg/dL (8.5-10.1)
[2020-09-28 04:07] LABS: BUN/Creatinine Ratio 16.1; Basophils % (manual) 0 (0.0-2.0); Blast Cells 0; Metamyelocytes % 0; Myelocytes % 0; Promyelocytes % 0; Reactive Lymphocytes 0
[2020-09-28 04:08] LABS: Bilirubin, Total 0.5 mg/dL (0.2-1.0); Phosphorus 7.6 mg/dL (2.5-4.90); Total Protein 6.8 g/dL (6.4-8.2)
[2020-09-28 04:16] LABS: Potassium 6.2 mmol/L (3.5-5.1)
[2020-09-28] MEDS: POTASSIUM CHL 20MEQ/100ML 100 ML IV SCH (04:59)
[2020-09-28] MEDS: CLINDAMYCIN 600MG IV 50 ML IV SCH ×3 (05:00→21:01)
[2020-09-28] MEDS ORDERED: InsuLIN REG 1unit/0.01ml Soln (100units/ml) IV ONE (05:30)
[2020-09-28] MEDS ORDERED: CALCIUM CHL 100MG/ML 500 MG in D5W 5% 100 ML IV ONE (05:30)
[2020-09-28] MEDS ORDERED: SODIUM BICARBONATE 50ML VIAL 150 ML in D5W 5% 1,000 ML IV SCH (05:30)
[2020-09-28 06:00] LABS: Band Neutrophils % (manual) 3; Eosinophils % (manual) 3 (0-7); Lymphocytes % (manual) 11 (10.0-50.0); Monocytes % (manual) 10 (0-12)
[2020-09-28] MEDS ORDERED: DEXTROSE 50% SYRINGE 50 ML IV ONE ×2 (06:28→06:30)
[2020-09-28] MEDS ORDERED: SODIUM BICARBONATE 8.4 % INJ 50ML VIAL IV ONE (06:29)
[2020-09-28] MEDS ORDERED: DEXTROSE (50%) 50ML SYRG IV ONE (06:30)
[2020-09-28] MEDS: PANTOPRAZOLE 40 MG/10 ML VIAL INJ IV SCH (10:13)
[2020-09-28] MEDS: AZITHROMYCIN 500MG/ 250ML 250 ML IV SCH (10:22)
[2020-09-28] MEDS: ENOXAPARIN SOD 100 MG/1 ML SYRINGE SC SCH (10:24)
[2020-09-28 11:31] LABS: Protein, Urine 110.5 mg/dL (0.0-11.9); Urine Amorphous Crystal MANY /hpf (None Seen); Urine Bacteria MANY /hpf (None Seen); Urine Blood 3+ /uL (Negative); Urine Specific Gravity 1.011 (1.001-1.035); Urine WBC 77 /hpf (0 - 3)
[2020-09-28] MEDS: MIDAZOLAM DRIP 50 mg/50mL 50 ML IV SCH (15:40)
[2020-09-28] MEDS: SODIUM CHLORIDE 0.9% 1,000 ML IV SCH (16:00)
[2020-09-28] MEDS ORDERED: FUROSEMIDE 20 MG/2 ML VIAL IV ONE (16:15)
[2020-09-28 17:34] LABS: Calcium 8.5 mg/dL (8.5-10.1)
[2020-09-28 17:38] LABS: BUN/Creatinine Ratio 17.9
[2020-09-28 18:39] LABS: Potassium 5.8 mmol/L (3.5-5.1)
[2020-09-28] MEDS ORDERED: SODIUM ZIRCONIUM CYCL 10 GM PAK PO ONE (19:00)
[2020-09-28] MEDS: ALBUTEROL SULF 2.5 MG/0.5ML(0.5%) NEB SOLN NEB SCH (19:48)
[2020-09-28] MEDS: IPRATROPIUM BROM 0.5 MG/2.5ML INH SOL NEB SCH (19:49)
[2020-09-28] MEDS: DOPamine 1600MCG/ML D5W 250 ML IV SCH (20:00)
[2020-09-28] MEDS: CALCIUM ACETATE 667 MG CAP NG SCH (20:30)
[2020-09-28] MEDS: fentaNYL Drip 2500mCg/250mlNS 250 ML IV SCH (20:59)
[2020-09-28] MEDS: ENOXAPARIN SOD 150 MG/1 ML SYRINGE SC SCH (21:08)
[2020-09-28] MEDS: SODIUM ZIRCONIUM CYCL 10 GM PAK GT SCH (22:00)
[2020-09-29] VITALS (50 sets, daily range): BP systolic 101–138; BP diastolic 53–87
[2020-09-29] MEDS: PROPOFOL 100 ML IV SCH ×2 (01:35→10:36)
[2020-09-29] MEDS: SODIUM CHLORIDE 0.9% 1,000 ML IV SCH ×3 (02:00→22:00)
[2020-09-29] MEDS: PENICILLIN G POTASSIUM 4,000,000 UNITS in D5W 5% 50 ML IV SCH ×2 (03:07→07:00)
[2020-09-29] MEDS: NOREPINEPHRINE 8 MG/250ML KIT 250 ML IV SCH ×2 (03:11→19:23)
[2020-09-29] MEDS: MIDAZOLAM DRIP 50 mg/50mL 50 ML IV SCH ×3 (03:15→15:36)
[2020-09-29 04:42] LABS: Hematocrit 35.2 % (41.0-53.0); Hemoglobin 11.1 g/dL (13.5-17.5); Mean Corpuscular Hgb Conc. 31.5 g/dL (32.0-36.0); Mean Corpuscular Volume 85.8 fL (80.0-100.0); Platelet Count (auto) 370 10^3/uL (140-450); Red Cell Distribution Width 19.7 % (11.8-14.3); White Blood Cell 14.8 10^3/uL (4.4-10.8)
[2020-09-29 05:10] LABS: Albumin 1.9 g/dL (3.4-5.0); Calcium 8.8 mg/dL (8.5-10.1)
[2020-09-29 05:15] LABS: BUN/Creatinine Ratio 18.8; Bilirubin, Total 0.4 mg/dL (0.2-1.0); Total Protein 6.9 g/dL (6.4-8.2)
[2020-09-29 05:30] LABS: Potassium 5.8 mmol/L (3.5-5.1)
[2020-09-29] MEDS: CALCIUM ACETATE 667 MG CAP NG SCH ×3 (05:32→22:00)
[2020-09-29] MEDS: SODIUM ZIRCONIUM CYCL 10 GM PAK GT SCH ×3 (05:32→22:00)
[2020-09-29] MEDS: CLINDAMYCIN 600MG IV 50 ML IV SCH ×3 (05:32→22:00)
[2020-09-29 06:05] LABS: Basophils % (manual) 0 (0.0-2.0); Blast Cells 0; Promyelocytes % 0; Reactive Lymphocytes 0
[2020-09-29] MEDS: ALBUTEROL SULF 2.5 MG/0.5ML(0.5%) NEB SOLN NEB SCH ×4 (08:21→18:00)
[2020-09-29] MEDS: IPRATROPIUM BROM 0.5 MG/2.5ML INH SOL NEB SCH ×4 (08:21→18:00)
[2020-09-29 08:47] LABS: Band Neutrophils % (manual) 8; Eosinophils % (manual) 2 (0-7); Lymphocytes % (manual) 4 (10.0-50.0); Metamyelocytes % 2; Monocytes % (manual) 14 (0-12); Myelocytes % 2
[2020-09-29] MEDS: PANTOPRAZOLE 40 MG/10 ML VIAL INJ IV SCH (09:44)
[2020-09-29] MEDS: AZITHROMYCIN 500MG/ 250ML 250 ML IV SCH (09:48)
[2020-09-29] MEDS: ENOXAPARIN SOD 150 MG/1 ML SYRINGE SC SCH (09:49)
[2020-09-29] MEDS: Glucerna 1.2 Cal 1Liter BOTTLE GT SCH (10:19)
[2020-09-29] MEDS: fentaNYL Drip 2500mCg/250mlNS 250 ML IV SCH (10:44)
[2020-09-29] MEDS: FUROSEMIDE 100 MG/10ML VIAL IV SCH (12:04)
[2020-09-29] MEDS: DOPamine 1600MCG/ML D5W 250 ML IV SCH (12:18)
[2020-09-29] MEDS ORDERED: IV IMMUNE GLOBULIN(IVIG) 10% 20G/200ML IV ONE (17:45)
[2020-09-29] MEDS ORDERED: IV IMMUNE GLOBULIN(IVIG) 10% 20G/200ML IV SCH (18:00)
[2020-09-29] MEDS: CEFTRIAXONE SODIUM 2 GM in D5W 5% 50 ML IV SCH (18:43)
[2020-09-30] VITALS (77 sets, daily range): BP systolic 89–119; BP diastolic 47–76
[2020-09-30] MEDS: DOPamine 1600MCG/ML D5W 250 ML IV SCH ×3 (01:50→17:15)
[2020-09-30 04:52] LABS: Hematocrit 31.1 % (41.0-53.0); Red Blood Cells 3.64 10^6/uL (4.5-5.90)
[2020-09-30 04:56] LABS: Hemoglobin 9.6 g/dL (13.5-17.5); Mean Corpuscular Hemoglobin 26.3 pg (28.0-32.0); Mean Corpuscular Hgb Conc. 30.8 g/dL (32.0-36.0); Mean Corpuscular Volume 85.3 fL (80.0-100.0); Platelet Count (auto) 362 10^3/uL (140-450); White Blood Cell 12.7 10^3/uL (4.4-10.8)
[2020-09-30 04:58] LABS: Basophils % (manual) 0 (0.0-2.0); Blast Cells 0
[2020-09-30 05:22] LABS: Potassium 4.8 mmol/L (3.5-5.1)
[2020-09-30] MEDS: CLINDAMYCIN 600MG IV 50 ML IV SCH ×4 (05:24→23:49)
[2020-09-30 05:28] LABS: Albumin 1.6 g/dL (3.4-5.0); Bilirubin, Total 0.4 mg/dL (0.2-1.0); Calcium 8.3 mg/dL (8.5-10.1); Total Protein 6.9 g/dL (6.4-8.2)
[2020-09-30] MEDS: ALBUTEROL SULF 2.5 MG/0.5ML(0.5%) NEB SOLN NEB SCH ×4 (06:00→23:56)
[2020-09-30] MEDS: CALCIUM ACETATE 667 MG CAP NG SCH ×3 (06:00→23:49)
[2020-09-30] MEDS: IPRATROPIUM BROM 0.5 MG/2.5ML INH SOL NEB SCH ×4 (06:00→23:56)
[2020-09-30 06:59] LABS: Band Neutrophils % (manual) 6; Eosinophils % (manual) 7 (0-7); Lymphocytes % (manual) 8 (10.0-50.0); Metamyelocytes % 2; Monocytes % (manual) 13 (0-12); Myelocytes % 1; Promyelocytes % 1; Reactive Lymphocytes 1
[2020-09-30] MEDS: SODIUM CHLORIDE 0.9% 1,000 ML IV SCH ×3 (08:00→18:00)
[2020-09-30] MEDS: PROPOFOL 100 ML IV SCH ×3 (09:00→18:20)
[2020-09-30] MEDS: FUROSEMIDE 100 MG/10ML VIAL IV SCH (10:00)
[2020-09-30] MEDS: PANTOPRAZOLE 40 MG/10 ML VIAL INJ IV SCH (10:02)
[2020-09-30] MEDS: CEFTRIAXONE SODIUM 2 GM in D5W 5% 50 ML IV SCH (10:09)
[2020-09-30] MEDS: NOREPINEPHRINE 8 MG/250ML KIT 250 ML IV SCH (11:19)
[2020-09-30] MEDS: fentaNYL Drip 2500mCg/250mlNS 250 ML IV SCH ×2 (11:38→19:15)
[2020-09-30] MEDS: MIDAZOLAM DRIP 50 mg/50mL 50 ML IV SCH ×2 (14:35→19:15)
[2020-09-30] MEDS: IV IMMUNE GLOBULIN(IVIG) 10% 20G/200ML IV SCH (18:10)
[2020-09-30] MEDS: ENOXAPARIN SOD 100 MG/1 ML SYRINGE SC SCH (22:00)
[2020-10-01] VITALS (87 sets, daily range): BP systolic 92–122; BP diastolic 52–80
[2020-10-01] MEDS: ALBUTEROL SULF 2.5 MG/0.5ML(0.5%) NEB SOLN NEB SCH ×4 (01:59→18:00)
[2020-10-01] MEDS: IPRATROPIUM BROM 0.5 MG/2.5ML INH SOL NEB SCH ×4 (01:59→18:00)
[2020-10-01 04:34] LABS: Hematocrit 29.2 % (41.0-53.0); Hemoglobin 9.2 g/dL (13.5-17.5); Mean Corpuscular Hemoglobin 27.1 pg (28.0-32.0); Mean Corpuscular Hgb Conc. 31.5 g/dL (32.0-36.0); Platelet Count (auto) 403 10^3/uL (140-450); Red Cell Distribution Width 19.8 % (11.8-14.3); White Blood Cell 9.4 10^3/uL (4.4-10.8)
[2020-10-01] MEDS: SODIUM CHLORIDE 0.9% 1,000 ML IV SCH ×3 (04:43→15:42)
[2020-10-01] MEDS: CLINDAMYCIN 600MG IV 50 ML IV SCH ×3 (04:44→21:44)
[2020-10-01] MEDS: CALCIUM ACETATE 667 MG CAP NG SCH ×3 (04:44→21:44)
[2020-10-01 04:52] LABS: Potassium 4.3 mmol/L (3.5-5.1)
[2020-10-01 05:00] LABS: Albumin 1.6 g/dL (3.4-5.0); BUN/Creatinine Ratio 24.1; Bilirubin, Total 0.3 mg/dL (0.2-1.0); Calcium 8.5 mg/dL (8.5-10.1)
[2020-10-01 05:47] LABS: Basophils % (manual) 0 (0.0-2.0); Blast Cells 0; Promyelocytes % 0; Reactive Lymphocytes 0
[2020-10-01 07:20] LABS: Band Neutrophils % (manual) 2; Eosinophils % (manual) 1 (0-7); Lymphocytes % (manual) 7 (10.0-50.0); Metamyelocytes % 5; Monocytes % (manual) 19 (0-12); Myelocytes % 1
[2020-10-01] MEDS: ENOXAPARIN SOD 100 MG/1 ML SYRINGE SC SCH (10:00)
[2020-10-01] MEDS: FUROSEMIDE 100 MG/10ML VIAL IV SCH (10:10)
[2020-10-01] MEDS: PANTOPRAZOLE 40 MG/10 ML VIAL INJ IV SCH (10:10)
[2020-10-01] MEDS: CEFTRIAXONE SODIUM 2 GM in D5W 5% 50 ML IV SCH (10:13)
[2020-10-01] MEDS: MIDAZOLAM DRIP 50 mg/50mL 50 ML IV SCH ×2 (10:15→16:23)
[2020-10-01] MEDS: DOPamine 1600MCG/ML D5W 250 ML IV SCH (13:07)
[2020-10-01] MEDS: PROPOFOL 100 ML IV SCH (13:09)
[2020-10-01] MEDS ORDERED: GOLYTELY 4L KIT PO ONE (13:45)
[2020-10-01] MEDS: fentaNYL Drip 2500mCg/250mlNS 250 ML IV SCH (15:42)
[2020-10-01] MEDS: IV IMMUNE GLOBULIN(IVIG) 10% 20G/200ML IV SCH (18:00)
[2020-10-01 19:03] LABS: Hematocrit 29.4 % (41.0-53.0); Hemoglobin 9.2 g/dL (13.5-17.5)
[2020-10-01 19:36] LABS: INR 1.02 (0.9-1.15)
[2020-10-01] MEDS: NOREPINEPHRINE 8 MG/250ML KIT 250 ML IV SCH (21:43)
[2020-10-02] VITALS (56 sets, daily range): BP systolic 90–118; BP diastolic 49–78
[2020-10-02] MEDS: SODIUM CHLORIDE 0.9% 1,000 ML IV SCH ×4 (01:00→16:00)
[2020-10-02] MEDS ORDERED: HEPARIN SODIUM (PORCINE) 5000 UNITS/ML 1ML VIAL IV ONE (02:30)
[2020-10-02] MEDS ORDERED: HEPARIN DRIP/D5W 100UNITS/ML 250 ML IV SCH (02:30)
[2020-10-02] MEDS: DOPamine 1600MCG/ML D5W 250 ML IV SCH ×2 (04:59→15:30)
[2020-10-02] MEDS: fentaNYL Drip 2500mCg/250mlNS 250 ML IV SCH ×2 (04:59→19:15)
[2020-10-02] MEDS: PROPOFOL 100 ML IV SCH ×3 (05:00→19:27)
[2020-10-02] MEDS: MIDAZOLAM DRIP 50 mg/50mL 50 ML IV SCH ×4 (05:01→18:00)
[2020-10-02 05:06] LABS: Hematocrit 27.7 % (41.0-53.0); Hemoglobin 8.6 g/dL (13.5-17.5); Mean Corpuscular Hemoglobin 27.1 pg (28.0-32.0); Mean Corpuscular Volume 87.5 fL (80.0-100.0); Platelet Count (auto) 416 10^3/uL (140-450); Red Blood Cells 3.17 10^6/uL (4.5-5.90); Red Cell Distribution Width 19.9 % (11.8-14.3); White Blood Cell 9.3 10^3/uL (4.4-10.8)
[2020-10-02 05:23] LABS: Albumin 1.7 g/dL (3.4-5.0); Calcium 8.6 mg/dL (8.5-10.1); Potassium 4.2 mmol/L (3.5-5.1)
[2020-10-02 05:28] LABS: BUN/Creatinine Ratio 21.8; Bilirubin, Direct 0.2 mg/dL (0-0.2); Bilirubin, Total 0.3 mg/dL (0.2-1.0); Magnesium 2.8 mg/dL (1.6-2.6); Total Protein 7.5 g/dL (6.4-8.2)
[2020-10-02 05:29] LABS: Basophils % (manual) 0 (0.0-2.0); Blast Cells 0; Reactive Lymphocytes 0
[2020-10-02] MEDS: CALCIUM ACETATE 667 MG CAP NG SCH ×3 (06:00→21:57)
[2020-10-02] MEDS: IPRATROPIUM BROM 0.5 MG/2.5ML INH SOL NEB SCH ×4 (06:00→18:00)
[2020-10-02] MEDS: ALBUTEROL SULF 2.5 MG/0.5ML(0.5%) NEB SOLN NEB SCH ×4 (06:00→18:00)
[2020-10-02] MEDS: CLINDAMYCIN 600MG IV 50 ML IV SCH ×3 (06:20→21:57)
[2020-10-02 07:24] LABS: Band Neutrophils % (manual) 7; Eosinophils % (manual) 4 (0-7); Lymphocytes % (manual) 3 (10.0-50.0); Metamyelocytes % 4; Monocytes % (manual) 12 (0-12); Myelocytes % 1; Promyelocytes % 1
[2020-10-02] MEDS ORDERED: fentaNYL CITRATE 100 MCG/2 ML VL ONE (08:30)
[2020-10-02] MEDS ORDERED: diphenhdrAMINE HCL 50 MG/1 ML VL ONE (08:30)
[2020-10-02] MEDS ORDERED: MIDAZOLAM HCL 5 MG/ML-1ML VIAL ONE (08:30)
[2020-10-02 08:50] LABS: INR 1.03 (0.9-1.15); Partial Thromboplastin Time 23.9 sec (23.0-31.2)
[2020-10-02] MEDS: FUROSEMIDE 100 MG/10ML VIAL IV SCH (10:00)
[2020-10-02] MEDS: PANTOPRAZOLE 40 MG/10 ML VIAL INJ IV SCH (10:00)
[2020-10-02] MEDS: CEFTRIAXONE SODIUM 2 GM in D5W 5% 50 ML IV SCH (10:00)
[2020-10-02] MEDS ORDERED: ENOXAPARIN SOD 150 MG/1 ML SYRINGE SC SCH (13:53)
[2020-10-02] MEDS ORDERED: ENOXAPARIN SOD 40 MG/0.4 ML SYRINGE SC SCH (14:30)
[2020-10-02 16:16] LABS: Basophils # (auto) 0 10 ^3/uL (0-0.2); Basophils % (auto) 0.5 % (0.0-2.0); Monocytes # (auto) 1.6 10 ^3/uL (0-1.3); Red Blood Cells 3.18 10^6/uL (4.5-5.90)
[2020-10-02 16:17] LABS: Eosinophils # (auto) 0.5 10 ^3/uL (0-0.8); Eosinophils % (auto) 4.6 % (0.0-7.0); Hematocrit 27.6 % (41.0-53.0); Hemoglobin 8.8 g/dL (13.5-17.5); Lymphocytes # (auto) 0.7 10 ^3/uL (0.4-5.4); Lymphocytes % (auto) 7.4 % (10.0-50.0); Mean Corpuscular Hemoglobin 27.6 pg (28.0-32.0); Mean Corpuscular Hgb Conc. 31.8 g/dL (32.0-36.0); Mean Corpuscular Volume 86.8 fL (80.0-100.0); Neutrophils % (auto) 71.5 % (37.0-80.0); Platelet Count (auto) 418 10^3/uL (140-450); White Blood Cell 9.9 10^3/uL (4.4-10.8)
[2020-10-02] MEDS: NOREPINEPHRINE 8 MG/250ML KIT 250 ML IV SCH (17:00)
[2020-10-02 17:22] LABS: INR 1.05 (0.9-1.15); Partial Thromboplastin Time 39.7 sec (23.0-31.2)
[2020-10-02 19:02] LABS: Basophils # (auto) 0 10 ^3/uL (0-0.2); Basophils % (auto) 0.4 % (0.0-2.0); Eosinophils # (auto) 0.4 10 ^3/uL (0-0.8); Eosinophils % (auto) 3.9 % (0.0-7.0); Hematocrit 28.1 % (41.0-53.0); Hemoglobin 8.8 g/dL (13.5-17.5); Lymphocytes # (auto) 0.6 10 ^3/uL (0.4-5.4); Lymphocytes % (auto) 6.4 % (10.0-50.0); Mean Corpuscular Hemoglobin 27.2 pg (28.0-32.0); Mean Corpuscular Hgb Conc. 31.3 g/dL (32.0-36.0); Mean Corpuscular Volume 87.1 fL (80.0-100.0); Monocytes # (auto) 1.5 10 ^3/uL (0-1.3); Monocytes % (auto) 14.3 % (0.0-12.0); Neutrophils # (auto) 7.6 10 ^3/uL (1.6-8.6); Platelet Count (auto) 411 10^3/uL (140-450); Red Blood Cells 3.22 10^6/uL (4.5-5.90); Red Cell Distribution Width 19.7 % (11.8-14.3); White Blood Cell 10.2 10^3/uL (4.4-10.8)
[2020-10-03] VITALS (98 sets, daily range): BP systolic 81–121; BP diastolic 52–81
[2020-10-03] MEDS: SODIUM CHLORIDE 0.9% 1,000 ML IV SCH ×2 (00:05→06:20)
[2020-10-03] MEDS: MIDAZOLAM DRIP 50 mg/50mL 50 ML IV SCH ×3 (00:43→23:22)
[2020-10-03 03:05] LABS: Basophils # (auto) 0 10 ^3/uL (0-0.2); Eosinophils # (auto) 0.3 10 ^3/uL (0-0.8); Lymphocytes # (auto) 0.7 10 ^3/uL (0.4-5.4); Monocytes # (auto) 1.3 10 ^3/uL (0-1.3); White Blood Cell 10.4 10^3/uL (4.4-10.8)
[2020-10-03 03:06] LABS: Eosinophils % (auto) 2.9 % (0.0-7.0); Hematocrit 26.3 % (41.0-53.0); Hemoglobin 8.1 g/dL (13.5-17.5); Lymphocytes % (auto) 6.8 % (10.0-50.0); Mean Corpuscular Hemoglobin 26.9 pg (28.0-32.0); Mean Corpuscular Hgb Conc. 30.9 g/dL (32.0-36.0); Mean Corpuscular Volume 87.2 fL (80.0-100.0); Monocytes % (auto) 12.5 % (0.0-12.0); Neutrophils # (auto) 8.1 10 ^3/uL (1.6-8.6); Neutrophils % (auto) 77.8 % (37.0-80.0); Nucleated Red Blood Cells % 0.1 %; Platelet Count (auto) 401 10^3/uL (140-450); Red Blood Cells 3.02 10^6/uL (4.5-5.90); Red Cell Distribution Width 19.6 % (11.8-14.3)
[2020-10-03] MEDS: PROPOFOL 100 ML IV SCH ×3 (04:08→23:22)
[2020-10-03] MEDS: CLINDAMYCIN 600MG IV 50 ML IV SCH ×3 (05:42→21:39)
[2020-10-03] MEDS: CALCIUM ACETATE 667 MG CAP NG SCH ×3 (05:42→21:39)
[2020-10-03] MEDS: DOPamine 1600MCG/ML D5W 250 ML IV SCH ×2 (06:55→21:39)
[2020-10-03] MEDS: IPRATROPIUM BROM 0.5 MG/2.5ML INH SOL NEB SCH ×3 (07:32→18:14)
[2020-10-03] MEDS: ALBUTEROL SULF 2.5 MG/0.5ML(0.5%) NEB SOLN NEB SCH ×3 (07:32→18:14)
[2020-10-03] MEDS: FUROSEMIDE 100 MG/10ML VIAL IV SCH (10:00)
[2020-10-03] MEDS: PANTOPRAZOLE 40 MG/10 ML VIAL INJ IV SCH (10:00)
[2020-10-03] MEDS: fentaNYL Drip 2500mCg/250mlNS 250 ML IV SCH ×2 (11:15→23:21)
[2020-10-03] MEDS: NOREPINEPHRINE 8 MG/250ML KIT 250 ML IV SCH ×2 (11:16→21:39)
[2020-10-03] MEDS: CEFTRIAXONE SODIUM 2 GM in D5W 5% 50 ML IV SCH (11:26)
[2020-10-03 12:23] LABS: Basophils # (auto) 0 10 ^3/uL (0-0.2); Basophils % (auto) 0.2 % (0.0-2.0); Eosinophils # (auto) 0.4 10 ^3/uL (0-0.8); Lymphocytes # (auto) 0.8 10 ^3/uL (0.4-5.4); Monocytes # (auto) 1.5 10 ^3/uL (0-1.3)
[2020-10-03 12:25] LABS: Eosinophils % (auto) 3.2 % (0.0-7.0); Lymphocytes % (auto) 7.3 % (10.0-50.0); Mean Corpuscular Hemoglobin 26.9 pg (28.0-32.0); Mean Corpuscular Hgb Conc. 30.9 g/dL (32.0-36.0); Neutrophils # (auto) 8.7 10 ^3/uL (1.6-8.6); Neutrophils % (auto) 76.3 % (37.0-80.0); Platelet Count (auto) 400 10^3/uL (140-450); Red Blood Cells 2.99 10^6/uL (4.5-5.90); Red Cell Distribution Width 19.5 % (11.8-14.3); White Blood Cell 11.4 10^3/uL (4.4-10.8)
[2020-10-03 12:46] LABS: INR 1.04 (0.9-1.15); Partial Thromboplastin Time 29.3 sec (23.0-31.2)
[2020-10-03 13:35] LABS: Potassium 4.1 mmol/L (3.5-5.1)
[2020-10-03 13:41] LABS: Albumin 1.8 g/dL (3.4-5.0); BUN/Creatinine Ratio 26.5; Bilirubin, Direct 0.2 mg/dL (0-0.2); Bilirubin, Total 0.3 mg/dL (0.2-1.0); Magnesium 2.4 mg/dL (1.6-2.6); Total Protein 7.2 g/dL (6.4-8.2)
[2020-10-03] MEDS: ACETAMINOPHEN 325 MG TAB PO PRN (19:25)
[2020-10-03 22:34] LABS: Hematocrit 24.7 % (41.0-53.0); Hemoglobin 7.7 g/dL (13.5-17.5)
[2020-10-04] VITALS (94 sets, daily range): BP systolic 95–144; BP diastolic 46–92
[2020-10-04] MEDS: SODIUM CHLORIDE 0.9% 1,000 ML IV SCH ×2 (01:08→17:58)
[2020-10-04] MEDS: ALBUTEROL SULF 2.5 MG/0.5ML(0.5%) NEB SOLN NEB SCH ×4 (01:58→18:00)
[2020-10-04] MEDS: IPRATROPIUM BROM 0.5 MG/2.5ML INH SOL NEB SCH ×4 (01:58→18:00)
[2020-10-04 04:41] LABS: BUN/Creatinine Ratio 27.5; Potassium 3.6 mmol/L (3.5-5.1)
[2020-10-04] MEDS: MIDAZOLAM DRIP 50 mg/50mL 50 ML IV SCH ×3 (06:10→21:34)
[2020-10-04] MEDS: PROPOFOL 100 ML IV SCH ×4 (06:10→17:58)
[2020-10-04] MEDS: CALCIUM ACETATE 667 MG CAP NG SCH ×3 (06:10→21:32)
[2020-10-04] MEDS: CLINDAMYCIN 600MG IV 50 ML IV SCH ×3 (06:10→21:32)
[2020-10-04 08:43] LABS: Eosinophils # (auto) 0.4 10 ^3/uL (0-0.8); Monocytes # (auto) 1.5 10 ^3/uL (0-1.3); Neutrophils # (auto) 10.9 10 ^3/uL (1.6-8.6); Red Cell Distribution Width 19.9 % (11.8-14.3)
[2020-10-04] MEDS: CEFTRIAXONE SODIUM 2 GM in D5W 5% 50 ML IV SCH ×2 (08:44→10:43)
[2020-10-04 08:45] LABS: Basophils # (auto) 0.1 10 ^3/uL (0-0.2); Basophils % (auto) 0.7 % (0.0-2.0); Hematocrit 25.8 % (41.0-53.0); Lymphocytes % (auto) 7.5 % (10.0-50.0); Mean Corpuscular Hgb Conc. 31.1 g/dL (32.0-36.0); Mean Corpuscular Volume 86.8 fL (80.0-100.0); Monocytes % (auto) 10.7 % (0.0-12.0); Neutrophils % (auto) 78.1 % (37.0-80.0); Nucleated Red Blood Cells % 0.1 %; Platelet Count (auto) 435 10^3/uL (140-450); Red Blood Cells 2.97 10^6/uL (4.5-5.90); White Blood Cell 13.9 10^3/uL (4.4-10.8)
[2020-10-04] MEDS ORDERED: diphenhdrAMINE HCL 50 MG/1 ML VL ONE (09:45)
[2020-10-04] MEDS ORDERED: fentaNYL CITRATE 100 MCG/2 ML VL ONE (09:45)
[2020-10-04] MEDS ORDERED: MIDAZOLAM HCL 5 MG/ML-1ML VIAL ONE (09:45)
[2020-10-04] MEDS: PANTOPRAZOLE 40 MG/10 ML VIAL INJ IV SCH (10:43)
[2020-10-04] MEDS: FUROSEMIDE 100 MG/10ML VIAL IV SCH (10:43)
[2020-10-04 11:05] LABS: Hemoglobin 8.3 g/dL (13.5-17.5)
[2020-10-04 11:08] LABS: Hematocrit 25.9 % (41.0-53.0)
[2020-10-04] MEDS: NOREPINEPHRINE 8 MG/250ML KIT 250 ML IV SCH (13:04)
[2020-10-04] MEDS: DOPamine 1600MCG/ML D5W 250 ML IV SCH (13:22)
[2020-10-04] MEDS: Glucerna 1.2 Cal 1Liter BOTTLE GT SCH (21:34)
[2020-10-04 22:44] LABS: Basophils # (auto) 0 10 ^3/uL (0-0.2); Eosinophils # (auto) 0.3 10 ^3/uL (0-0.8); Eosinophils % (auto) 2.7 % (0.0-7.0); Hemoglobin 7.3 g/dL (13.5-17.5); Neutrophils # (auto) 8.9 10 ^3/uL (1.6-8.6); Red Cell Distribution Width 19.8 % (11.8-14.3)
[2020-10-04 22:45] LABS: Basophils % (auto) 0.3 % (0.0-2.0); Hematocrit 23.1 % (41.0-53.0); Lymphocytes # (auto) 1.2 10 ^3/uL (0.4-5.4); Lymphocytes % (auto) 10.3 % (10.0-50.0); Mean Corpuscular Hemoglobin 27.3 pg (28.0-32.0); Mean Corpuscular Hgb Conc. 31.6 g/dL (32.0-36.0); Mean Corpuscular Volume 86.2 fL (80.0-100.0); Monocytes # (auto) 1.1 10 ^3/uL (0-1.3); Monocytes % (auto) 9.5 % (0.0-12.0); Neutrophils % (auto) 77.2 % (37.0-80.0); Platelet Count (auto) 363 10^3/uL (140-450); Red Blood Cells 2.68 10^6/uL (4.5-5.90); White Blood Cell 11.5 10^3/uL (4.4-10.8)
[2020-10-04] MEDS: HEPARIN SODIUM (PORCINE) 5000 UNITS/ML 1ML VIAL SC SCH (22:54)
[2020-10-05] VITALS (54 sets, daily range): BP systolic 88–131; BP diastolic 53–83
[2020-10-05] MEDS: MIDAZOLAM DRIP 50 mg/50mL 50 ML IV SCH ×4 (01:43→17:46)
[2020-10-05] MEDS: SODIUM CHLORIDE 0.9% 1,000 ML IV SCH (05:36)
[2020-10-05] MEDS: CLINDAMYCIN 600MG IV 50 ML IV SCH ×3 (05:36→22:08)
[2020-10-05] MEDS: DOPamine 1600MCG/ML D5W 250 ML IV SCH ×2 (05:37→19:45)
[2020-10-05] MEDS: CALCIUM ACETATE 667 MG CAP NG SCH ×3 (05:39→22:08)
[2020-10-05] MEDS: HEPARIN SODIUM (PORCINE) 5000 UNITS/ML 1ML VIAL SC SCH ×2 (05:40→22:12)
[2020-10-05] MEDS: IPRATROPIUM BROM 0.5 MG/2.5ML INH SOL NEB SCH ×4 (06:20→18:00)
[2020-10-05] MEDS: ALBUTEROL SULF 2.5 MG/0.5ML(0.5%) NEB SOLN NEB SCH ×4 (06:20→18:00)
[2020-10-05 07:23] LABS: Basophils # (auto) 0 10 ^3/uL (0-0.2); Eosinophils # (auto) 0.3 10 ^3/uL (0-0.8); Hematocrit 23.6 % (41.0-53.0); Mean Corpuscular Hemoglobin 27.5 pg (28.0-32.0)
[2020-10-05 07:27] LABS: Basophils % (auto) 0.4 % (0.0-2.0); Eosinophils % (auto) 3.4 % (0.0-7.0); Hemoglobin 7.5 g/dL (13.5-17.5); Lymphocytes % (auto) 10.2 % (10.0-50.0); Mean Corpuscular Hgb Conc. 31.7 g/dL (32.0-36.0); Mean Corpuscular Volume 86.5 fL (80.0-100.0); Monocytes % (auto) 10.3 % (0.0-12.0); Neutrophils # (auto) 7.5 10 ^3/uL (1.6-8.6); Neutrophils % (auto) 75.7 % (37.0-80.0); Nucleated Red Blood Cells % 0.1 %; Platelet Count (auto) 349 10^3/uL (140-450); Red Blood Cells 2.72 10^6/uL (4.5-5.90); Red Cell Distribution Width 19.6 % (11.8-14.3)
[2020-10-05 08:09] LABS: Potassium 3.3 mmol/L (3.5-5.1)
[2020-10-05 09:00] LABS: BUN/Creatinine Ratio 23.7
[2020-10-05] MEDS: FUROSEMIDE 100 MG/10ML VIAL IV SCH (09:27)
[2020-10-05] MEDS: PANTOPRAZOLE 40 MG/10 ML VIAL INJ IV SCH (09:27)
[2020-10-05] MEDS: CEFTRIAXONE SODIUM 2 GM in D5W 5% 50 ML IV SCH (09:43)
[2020-10-05] MEDS: POTASSIUM CHL 20MEQ/100ML 100 ML IV SCH ×2 (13:19→15:34)
[2020-10-05] MEDS ORDERED: FUROSEMIDE 40 MG/4 ML VIAL IV ONE (14:00)
[2020-10-05] MEDS: SOD CHL 0.45% 1,000 ML IV SCH (14:17)
[2020-10-05] MEDS: PROPOFOL 100 ML IV SCH (18:32)
[2020-10-05] MEDS: fentaNYL Drip 2500mCg/250mlNS 250 ML IV SCH (19:47)
[2020-10-05] MEDS: Glucerna 1.2 Cal 1Liter BOTTLE GT SCH (20:00)
[2020-10-05] MEDS: NOREPINEPHRINE 8 MG/250ML KIT 250 ML IV SCH (20:00)
[2020-10-05 22:38] LABS: Hematocrit 25.7 % (41.0-53.0)
[2020-10-06] VITALS (72 sets, daily range): BP systolic 92–167; BP diastolic 53–104
[2020-10-06] MEDS: MIDAZOLAM DRIP 50 mg/50mL 50 ML IV SCH ×5 (00:54→20:52)
[2020-10-06] MEDS: ACETAMINOPHEN 325 MG TAB PO PRN ×2 (00:58→14:02)
[2020-10-06] MEDS: SOD CHL 0.45% 1,000 ML IV SCH (04:12)
[2020-10-06] MEDS: CLINDAMYCIN 600MG IV 50 ML IV SCH ×3 (05:45→22:23)
[2020-10-06] MEDS: HEPARIN SODIUM (PORCINE) 5000 UNITS/ML 1ML VIAL SC SCH ×3 (05:58→22:23)
[2020-10-06] MEDS: CALCIUM ACETATE 667 MG CAP NG SCH ×3 (06:08→22:23)
[2020-10-06 06:32] LABS: Basophils # (auto) 0 10 ^3/uL (0-0.2); Eosinophils # (auto) 0.5 10 ^3/uL (0-0.8); Hemoglobin 7.7 g/dL (13.5-17.5); Mean Corpuscular Volume 87.9 fL (80.0-100.0)
[2020-10-06 06:34] LABS: Basophils % (auto) 0.5 % (0.0-2.0); Eosinophils % (auto) 4.8 % (0.0-7.0); Lymphocytes # (auto) 1.1 10 ^3/uL (0.4-5.4); Lymphocytes % (auto) 10.6 % (10.0-50.0); Mean Corpuscular Hgb Conc. 31.9 g/dL (32.0-36.0); Monocytes % (auto) 9.5 % (0.0-12.0); Neutrophils # (auto) 7.5 10 ^3/uL (1.6-8.6); Neutrophils % (auto) 74.6 % (37.0-80.0); Platelet Count (auto) 357 10^3/uL (140-450); Red Blood Cells 2.74 10^6/uL (4.5-5.90); Red Cell Distribution Width 19.3 % (11.8-14.3)
[2020-10-06 07:01] LABS: Potassium 3.7 mmol/L (3.5-5.1)
[2020-10-06 07:20] LABS: Magnesium 1.9 mg/dL (1.6-2.6)
[2020-10-06] MEDS: PROPOFOL 100 ML IV SCH (09:30)
[2020-10-06] MEDS: FUROSEMIDE 100 MG/10ML VIAL IV SCH (09:31)
[2020-10-06] MEDS: PANTOPRAZOLE 40 MG/10 ML VIAL INJ IV SCH (09:31)
[2020-10-06] MEDS: CEFTRIAXONE SODIUM 2 GM in D5W 5% 50 ML IV SCH (09:32)
[2020-10-06] MEDS: DOPamine 1600MCG/ML D5W 250 ML IV SCH (09:39)
[2020-10-06] MEDS: fentaNYL Drip 2500mCg/250mlNS 250 ML IV SCH (12:44)
[2020-10-06] MEDS: IPRATROPIUM BROM 0.5 MG/2.5ML INH SOL NEB SCH ×3 (16:54→20:11)
[2020-10-06] MEDS: ALBUTEROL SULF 2.5 MG/0.5ML(0.5%) NEB SOLN NEB SCH ×3 (16:54→20:11)
[2020-10-06] MEDS: FREE WATER GT SCH (17:17)
[2020-10-06] MEDS: NOREPINEPHRINE 8 MG/250ML KIT 250 ML IV SCH (19:23)
[2020-10-07] VITALS (73 sets, daily range): BP systolic 88–145; BP diastolic 49–89
[2020-10-07] MEDS: FREE WATER GT SCH ×5 (00:05→23:44)
[2020-10-07] MEDS: ALBUTEROL SULF 2.5 MG/0.5ML(0.5%) NEB SOLN NEB SCH ×3 (01:43→18:00)
[2020-10-07] MEDS: IPRATROPIUM BROM 0.5 MG/2.5ML INH SOL NEB SCH ×3 (01:43→18:00)
[2020-10-07] MEDS: DOPamine 1600MCG/ML D5W 250 ML IV SCH (03:05)
[2020-10-07 04:14] LABS: Basophils # (auto) 0 10 ^3/uL (0-0.2); Hemoglobin 7.8 g/dL (13.5-17.5); Monocytes # (auto) 0.7 10 ^3/uL (0-1.3)
[2020-10-07 04:16] LABS: Basophils % (auto) 0.3 % (0.0-2.0); Eosinophils # (auto) 0.4 10 ^3/uL (0-0.8); Eosinophils % (auto) 4.6 % (0.0-7.0); Hematocrit 24.6 % (41.0-53.0); Lymphocytes % (auto) 10.8 % (10.0-50.0); Mean Corpuscular Hemoglobin 27.9 pg (28.0-32.0); Mean Corpuscular Hgb Conc. 31.7 g/dL (32.0-36.0); Mean Corpuscular Volume 88.1 fL (80.0-100.0); Monocytes % (auto) 7.7 % (0.0-12.0); Neutrophils # (auto) 7.3 10 ^3/uL (1.6-8.6); Neutrophils % (auto) 76.6 % (37.0-80.0); Platelet Count (auto) 339 10^3/uL (140-450); Red Blood Cells 2.79 10^6/uL (4.5-5.90); Red Cell Distribution Width 19.4 % (11.8-14.3); White Blood Cell 9.5 10^3/uL (4.4-10.8)
[2020-10-07 04:34] LABS: Calcium 9.4 mg/dL (8.5-10.1); Potassium 3.7 mmol/L (3.5-5.1)
[2020-10-07 04:38] LABS: BUN/Creatinine Ratio 24.6
[2020-10-07] MEDS: MIDAZOLAM DRIP 50 mg/50mL 50 ML IV SCH ×2 (04:39→09:35)
[2020-10-07] MEDS: CALCIUM ACETATE 667 MG CAP NG SCH ×3 (06:00→22:00)
[2020-10-07] MEDS: HEPARIN SODIUM (PORCINE) 5000 UNITS/ML 1ML VIAL SC SCH ×3 (06:00→22:00)
[2020-10-07] MEDS: CLINDAMYCIN 600MG IV 50 ML IV SCH ×3 (06:15→22:00)
[2020-10-07] MEDS: PANTOPRAZOLE 40 MG/10 ML VIAL INJ IV SCH (09:30)
[2020-10-07] MEDS: FUROSEMIDE 100 MG/10ML VIAL IV SCH (09:30)
[2020-10-07] MEDS: CEFTRIAXONE SODIUM 2 GM in D5W 5% 50 ML IV SCH (10:00)
[2020-10-07] MEDS: PROPOFOL 100 ML IV SCH (10:36)
[2020-10-07] MEDS: fentaNYL Drip 2500mCg/250mlNS 250 ML IV SCH (11:23)
[2020-10-08] VITALS (70 sets, daily range): BP systolic 91–145; BP diastolic 55–91
[2020-10-08] MEDS: ALBUTEROL SULF 2.5 MG/0.5ML(0.5%) NEB SOLN NEB SCH ×4 (00:05→19:30)
[2020-10-08] MEDS: fentaNYL Drip 2500mCg/250mlNS 250 ML IV SCH ×2 (02:33→20:30)
[2020-10-08 05:07] LABS: Potassium 3.2 mmol/L (3.5-5.1)
[2020-10-08 05:13] LABS: Calcium 9.7 mg/dL (8.5-10.1)
[2020-10-08] MEDS: CLINDAMYCIN 600MG IV 50 ML IV SCH ×3 (05:19→21:04)
[2020-10-08] MEDS: FREE WATER GT SCH ×3 (05:19→19:00)
[2020-10-08] MEDS: CALCIUM ACETATE 667 MG CAP NG SCH ×3 (05:20→21:36)
[2020-10-08] MEDS: ACETAMINOPHEN 325 MG TAB PO PRN ×2 (05:21→21:39)
[2020-10-08] MEDS: HEPARIN SODIUM (PORCINE) 5000 UNITS/ML 1ML VIAL SC SCH ×3 (05:22→21:05)
[2020-10-08] MEDS: MIDAZOLAM DRIP 50 mg/50mL 50 ML IV SCH ×2 (06:30→20:31)
[2020-10-08] MEDS: IPRATROPIUM BROM 0.5 MG/2.5ML INH SOL NEB SCH ×4 (07:25→22:00)
[2020-10-08] MEDS: PROPOFOL 100 ML IV SCH (08:34)
[2020-10-08] MEDS: NOREPINEPHRINE 8 MG/250ML KIT 250 ML IV SCH ×2 (08:34→20:00)
[2020-10-08] MEDS: FUROSEMIDE 100 MG/10ML VIAL IV SCH (09:31)
[2020-10-08] MEDS: PANTOPRAZOLE 40 MG/10 ML VIAL INJ IV SCH (09:32)
[2020-10-08] MEDS: CEFTRIAXONE SODIUM 2 GM in D5W 5% 50 ML IV SCH (09:42)
[2020-10-08] MEDS: DOPamine 1600MCG/ML D5W 250 ML IV SCH ×2 (10:10→10:15)
[2020-10-08] MEDS: FUROSEMIDE INJECTION 100 MG in D5W 5% 100 ML IV SCH (15:06)
[2020-10-08] MEDS ORDERED: POTASSIUM CHL 20 Meq TABLET PO ONE (16:00)
[2020-10-08] MEDS ORDERED: POTASSIUM EFFERVESENT TAB 25 MEQ GT ONE (16:15)
[2020-10-08] MEDS: POTASSIUM CHL 20MEQ/100ML 100 ML IV SCH ×2 (16:52→18:00)
[2020-10-08] MEDS: acetaZOLAMIDE SODIUM 500 MG VL IV SCH (22:00)
[2020-10-09] VITALS (85 sets, daily range): BP systolic 78–149; BP diastolic 41–95
[2020-10-09] MEDS: PROPOFOL 100 ML IV SCH ×3 (02:40→23:30)
[2020-10-09] MEDS: DOPamine 1600MCG/ML D5W 250 ML IV SCH ×2 (03:30→17:05)
[2020-10-09 03:47] LABS: Potassium 3.7 mmol/L (3.5-5.1)
[2020-10-09 03:49] LABS: BUN/Creatinine Ratio 27.4
[2020-10-09] MEDS: CLINDAMYCIN 600MG IV 50 ML IV SCH ×3 (04:47→22:09)
[2020-10-09] MEDS: CALCIUM ACETATE 667 MG CAP NG SCH ×3 (04:51→22:09)
[2020-10-09] MEDS: FREE WATER GT SCH ×4 (04:51→18:02)
[2020-10-09] MEDS: HEPARIN SODIUM (PORCINE) 5000 UNITS/ML 1ML VIAL SC SCH ×3 (05:13→22:10)
[2020-10-09] MEDS: FUROSEMIDE INJECTION 100 MG in D5W 5% 100 ML IV SCH (07:00)
[2020-10-09] MEDS: IPRATROPIUM BROM 0.5 MG/2.5ML INH SOL NEB SCH ×3 (07:10→19:08)
[2020-10-09] MEDS: ALBUTEROL SULF 2.5 MG/0.5ML(0.5%) NEB SOLN NEB SCH ×3 (07:10→19:08)
[2020-10-09] MEDS: acetaZOLAMIDE SODIUM 500 MG VL IV SCH ×2 (10:00→22:00)
[2020-10-09] MEDS: FUROSEMIDE 100 MG/10ML VIAL IV SCH (10:04)
[2020-10-09] MEDS: PANTOPRAZOLE 40 MG/10 ML VIAL INJ IV SCH (10:05)
[2020-10-09] MEDS: CEFTRIAXONE SODIUM 2 GM in D5W 5% 50 ML IV SCH (10:05)
[2020-10-09] MEDS: MIDAZOLAM DRIP 50 mg/50mL 50 ML IV SCH ×4 (10:31→23:02)
[2020-10-09] MEDS: fentaNYL Drip 2500mCg/250mlNS 250 ML IV SCH ×2 (18:03→20:57)
[2020-10-09] MEDS: NOREPINEPHRINE 8 MG/250ML KIT 250 ML IV SCH ×2 (20:00→23:02)
[2020-10-10] VITALS (96 sets, daily range): BP systolic 83–129; BP diastolic 51–83
[2020-10-10] MEDS: FREE WATER GT SCH ×5 (00:18→23:44)
[2020-10-10] MEDS: ALBUTEROL SULF 2.5 MG/0.5ML(0.5%) NEB SOLN NEB SCH ×5 (00:25→23:09)
[2020-10-10] MEDS: IPRATROPIUM BROM 0.5 MG/2.5ML INH SOL NEB SCH ×5 (00:25→23:09)
[2020-10-10] MEDS: FUROSEMIDE INJECTION 100 MG in D5W 5% 100 ML IV SCH ×2 (02:43→21:00)
[2020-10-10] MEDS: PROPOFOL 100 ML IV SCH ×8 (04:14→22:29)
[2020-10-10] MEDS: MIDAZOLAM DRIP 50 mg/50mL 50 ML IV SCH ×6 (05:07→23:10)
[2020-10-10] MEDS: CLINDAMYCIN 600MG IV 50 ML IV SCH ×3 (05:47→22:12)
[2020-10-10] MEDS: CALCIUM ACETATE 667 MG CAP NG SCH ×3 (05:47→22:13)
[2020-10-10] MEDS: HEPARIN SODIUM (PORCINE) 5000 UNITS/ML 1ML VIAL SC SCH ×3 (05:48→22:13)
[2020-10-10] MEDS: Glucerna 1.2 Cal 1Liter BOTTLE GT SCH (05:48)
[2020-10-10 06:14] LABS: Basophils # (auto) 0 10 ^3/uL (0-0.2); Hemoglobin 8.3 g/dL (13.5-17.5); Monocytes # (auto) 0.7 10 ^3/uL (0-1.3); Red Cell Distribution Width 19.2 % (11.8-14.3)
[2020-10-10 06:17] LABS: Basophils % (auto) 0.4 % (0.0-2.0); Eosinophils # (auto) 0.7 10 ^3/uL (0-0.8); Eosinophils % (auto) 7.3 % (0.0-7.0); Hematocrit 25.5 % (41.0-53.0); Lymphocytes % (auto) 10.7 % (10.0-50.0); Mean Corpuscular Hemoglobin 28.6 pg (28.0-32.0); Mean Corpuscular Hgb Conc. 32.5 g/dL (32.0-36.0); Monocytes % (auto) 7.3 % (0.0-12.0); Neutrophils # (auto) 6.7 10 ^3/uL (1.6-8.6); Neutrophils % (auto) 74.3 % (37.0-80.0); Platelet Count (auto) 291 10^3/uL (140-450)
[2020-10-10 06:37] LABS: Potassium 3.3 mmol/L (3.5-5.1)
[2020-10-10 06:50] LABS: BUN/Creatinine Ratio 25.9; Calcium 9.6 mg/dL (8.5-10.1); Magnesium 1.9 mg/dL (1.6-2.6)
[2020-10-10] MEDS: fentaNYL Drip 2500mCg/250mlNS 250 ML IV SCH ×2 (08:23→20:00)
[2020-10-10] MEDS: DOPamine 1600MCG/ML D5W 250 ML IV SCH ×2 (08:30→20:00)
[2020-10-10] MEDS: POTASSIUM CHL 20MEQ/100ML 100 ML IV SCH ×2 (09:14→11:30)
[2020-10-10] MEDS: CEFTRIAXONE SODIUM 2 GM in D5W 5% 50 ML IV SCH (09:50)
[2020-10-10] MEDS: PANTOPRAZOLE 40 MG/10 ML VIAL INJ IV SCH (09:50)
[2020-10-10] MEDS: FUROSEMIDE 100 MG/10ML VIAL IV SCH (10:00)
[2020-10-10] MEDS: acetaZOLAMIDE SODIUM 500 MG VL IV SCH ×2 (10:00→22:00)
[2020-10-11] VITALS (88 sets, daily range): BP systolic 92–123; BP diastolic 50–80
[2020-10-11] MEDS: ACETAMINOPHEN 325 MG TAB PO PRN
[2020-10-11] MEDS: PROPOFOL 100 ML IV SCH ×6 (00:23→20:59)
[2020-10-11] MEDS: MIDAZOLAM DRIP 50 mg/50mL 50 ML IV SCH ×3 (02:29→20:58)
[2020-10-11 03:35] LABS: Basophils # (auto) 0 10 ^3/uL (0-0.2); Basophils % (auto) 0.3 % (0.0-2.0); Eosinophils # (auto) 0.6 10 ^3/uL (0-0.8); Eosinophils % (auto) 5.7 % (0.0-7.0); Hematocrit 24.2 % (41.0-53.0); Hemoglobin 7.9 g/dL (13.5-17.5); Lymphocytes # (auto) 0.9 10 ^3/uL (0.4-5.4); Lymphocytes % (auto) 8.2 % (10.0-50.0); Mean Corpuscular Hemoglobin 28.2 pg (28.0-32.0); Mean Corpuscular Hgb Conc. 32.5 g/dL (32.0-36.0); Monocytes # (auto) 0.8 10 ^3/uL (0-1.3); Monocytes % (auto) 7.2 % (0.0-12.0); Neutrophils # (auto) 8.7 10 ^3/uL (1.6-8.6); Neutrophils % (auto) 78.6 % (37.0-80.0); Platelet Count (auto) 244 10^3/uL (140-450); Red Blood Cells 2.79 10^6/uL (4.5-5.90); Red Cell Distribution Width 19.4 % (11.8-14.3); White Blood Cell 11.1 10^3/uL (4.4-10.8)
[2020-10-11 04:04] LABS: BUN/Creatinine Ratio 23.1; Calcium 9.3 mg/dL (8.5-10.1); Magnesium 1.6 mg/dL (1.6-2.6); Potassium 3.5 mmol/L (3.5-5.1)
[2020-10-11] MEDS: CALCIUM ACETATE 667 MG CAP NG SCH ×3 (06:00→20:57)
[2020-10-11] MEDS: HEPARIN SODIUM (PORCINE) 5000 UNITS/ML 1ML VIAL SC SCH ×3 (06:00→22:11)
[2020-10-11] MEDS: FREE WATER GT SCH ×3 (06:00→18:35)
[2020-10-11] MEDS: CLINDAMYCIN 600MG IV 50 ML IV SCH ×3 (06:00→20:56)
[2020-10-11] MEDS: ALBUTEROL SULF 2.5 MG/0.5ML(0.5%) NEB SOLN NEB SCH ×3 (07:02→20:41)
[2020-10-11] MEDS: IPRATROPIUM BROM 0.5 MG/2.5ML INH SOL NEB SCH ×3 (07:02→20:41)
[2020-10-11] MEDS: FUROSEMIDE 100 MG/10ML VIAL IV SCH (09:19)
[2020-10-11] MEDS: PANTOPRAZOLE 40 MG/10 ML VIAL INJ IV SCH (09:25)
[2020-10-11] MEDS: CEFTRIAXONE SODIUM 2 GM in D5W 5% 50 ML IV SCH (09:26)
[2020-10-11] MEDS: acetaZOLAMIDE SODIUM 500 MG VL IV SCH ×2 (09:26→20:56)
[2020-10-11] MEDS: fentaNYL Drip 2500mCg/250mlNS 250 ML IV SCH ×2 (09:37→23:38)
[2020-10-11] MEDS: DOPamine 1600MCG/ML D5W 250 ML IV SCH (12:19)
[2020-10-12] VITALS (62 sets, daily range): BP systolic 67–141; BP diastolic 55–82
[2020-10-12] MEDS: IPRATROPIUM BROM 0.5 MG/2.5ML INH SOL NEB SCH ×3 (00:22→20:06)
[2020-10-12] MEDS: ALBUTEROL SULF 2.5 MG/0.5ML(0.5%) NEB SOLN NEB SCH ×3 (00:22→20:06)
[2020-10-12] MEDS: DOPamine 1600MCG/ML D5W 250 ML IV SCH (03:17)
[2020-10-12] MEDS: PROPOFOL 100 ML IV SCH ×8 (03:23→23:00)
[2020-10-12 04:14] LABS: Calcium 8.8 mg/dL (8.5-10.1); Potassium 3.8 mmol/L (3.5-5.1)
[2020-10-12 04:16] LABS: BUN/Creatinine Ratio 17.5
[2020-10-12] MEDS: NOREPINEPHRINE 8 MG/250ML KIT 250 ML IV SCH ×2 (05:00→20:00)
[2020-10-12] MEDS: CLINDAMYCIN 600MG IV 50 ML IV SCH (05:03)
[2020-10-12] MEDS: CALCIUM ACETATE 667 MG CAP NG SCH ×3 (05:04→22:00)
[2020-10-12] MEDS: HEPARIN SODIUM (PORCINE) 5000 UNITS/ML 1ML VIAL SC SCH ×3 (05:04→22:00)
[2020-10-12] MEDS: FREE WATER GT SCH ×5 (05:10→23:03)
[2020-10-12] MEDS: MIDAZOLAM DRIP 50 mg/50mL 50 ML IV SCH ×2 (07:07→15:46)
[2020-10-12] MEDS: FUROSEMIDE INJECTION 100 MG in D5W 5% 100 ML IV SCH ×2 (09:05→15:00)
[2020-10-12] MEDS: FUROSEMIDE 100 MG/10ML VIAL IV SCH (09:30)
[2020-10-12] MEDS: acetaZOLAMIDE SODIUM 500 MG VL IV SCH ×2 (10:00→22:00)
[2020-10-12] MEDS: PANTOPRAZOLE 40 MG/10 ML VIAL INJ IV SCH (10:00)
[2020-10-12] MEDS: CEFTRIAXONE SODIUM 2 GM in D5W 5% 50 ML IV SCH (10:15)
[2020-10-12] MEDS: fentaNYL Drip 2500mCg/250mlNS 250 ML IV SCH (12:44)
[2020-10-13] VITALS (68 sets, daily range): BP systolic 99–134; BP diastolic 56–85
[2020-10-13] MEDS: fentaNYL Drip 2500mCg/250mlNS 250 ML IV SCH ×3 (00:32→14:27)
[2020-10-13] MEDS: PROPOFOL 100 ML IV SCH ×7 (01:15→21:30)
[2020-10-13 04:53] LABS: Hematocrit 24.6 % (41.0-53.0)
[2020-10-13] MEDS: IPRATROPIUM BROM 0.5 MG/2.5ML INH SOL NEB SCH ×4 (05:03→21:31)
[2020-10-13] MEDS: ALBUTEROL SULF 2.5 MG/0.5ML(0.5%) NEB SOLN NEB SCH ×4 (05:03→18:00)
[2020-10-13 05:07] LABS: Calcium 8.7 mg/dL (8.5-10.1); Potassium 3.5 mmol/L (3.5-5.1)
[2020-10-13 05:09] LABS: BUN/Creatinine Ratio 18.2
[2020-10-13] MEDS: MIDAZOLAM DRIP 50 mg/50mL 50 ML IV SCH ×5 (05:15→21:00)
[2020-10-13] MEDS: FUROSEMIDE INJECTION 100 MG in D5W 5% 100 ML IV SCH ×2 (06:00→12:30)
[2020-10-13] MEDS: HEPARIN SODIUM (PORCINE) 5000 UNITS/ML 1ML VIAL SC SCH ×2 (06:20→21:11)
[2020-10-13] MEDS: CALCIUM ACETATE 667 MG CAP NG SCH ×3 (07:00→22:00)
[2020-10-13] MEDS: FREE WATER GT SCH ×3 (07:00→18:00)
[2020-10-13] MEDS: NOREPINEPHRINE 8 MG/250ML KIT 250 ML IV SCH (09:25)
[2020-10-13] MEDS: acetaZOLAMIDE SODIUM 500 MG VL IV SCH ×2 (10:00→21:29)
[2020-10-13] MEDS: FUROSEMIDE 100 MG/10ML VIAL IV SCH (10:00)
[2020-10-13] MEDS: DOPamine 1600MCG/ML D5W 250 ML IV SCH ×2 (10:15→13:35)
[2020-10-13] MEDS: PANTOPRAZOLE 40 MG/10 ML VIAL INJ IV SCH (10:15)
[2020-10-13] MEDS: CEFTRIAXONE SODIUM 2 GM in D5W 5% 50 ML IV SCH (10:15)
[2020-10-14] VITALS (77 sets, daily range): BP systolic 92–124; BP diastolic 55–80
[2020-10-14] MEDS: PROPOFOL 100 ML IV SCH ×9 (00:40→22:51)
[2020-10-14] MEDS: DOPamine 1600MCG/ML D5W 250 ML IV SCH ×2 (01:30→14:04)
[2020-10-14] MEDS: fentaNYL Drip 2500mCg/250mlNS 250 ML IV SCH ×2 (02:09→12:28)
[2020-10-14] MEDS: MIDAZOLAM DRIP 50 mg/50mL 50 ML IV SCH ×4 (03:50→22:52)
[2020-10-14 04:21] LABS: Basophils # (auto) 0 10 ^3/uL (0-0.2); Neutrophils # (auto) 6.6 10 ^3/uL (1.6-8.6)
[2020-10-14 04:23] LABS: Basophils % (auto) 0.4 % (0.0-2.0); Eosinophils # (auto) 0.6 10 ^3/uL (0-0.8); Eosinophils % (auto) 7.2 % (0.0-7.0); Hematocrit 25.1 % (41.0-53.0); Lymphocytes # (auto) 0.8 10 ^3/uL (0.4-5.4); Lymphocytes % (auto) 8.5 % (10.0-50.0); Mean Corpuscular Hemoglobin 28.4 pg (28.0-32.0); Mean Corpuscular Hgb Conc. 31.9 g/dL (32.0-36.0); Mean Corpuscular Volume 88.9 fL (80.0-100.0); Monocytes # (auto) 0.8 10 ^3/uL (0-1.3); Monocytes % (auto) 9.6 % (0.0-12.0); Neutrophils % (auto) 74.3 % (37.0-80.0); Platelet Count (auto) 280 10^3/uL (140-450); Red Blood Cells 2.82 10^6/uL (4.5-5.90); Red Cell Distribution Width 19.7 % (11.8-14.3); White Blood Cell 8.8 10^3/uL (4.4-10.8)
[2020-10-14 04:39] LABS: Albumin 2.2 g/dL (3.4-5.0); Anion Gap 5 (5-15); BUN/Creatinine Ratio 16.5; Blood Urea Nitrogen 15 mg/dL (7-18); Calcium 8.7 mg/dL (8.5-10.1); Chloride 91 mmol/L (98-107); GFR African American 120 mL/min; GFR Non-African American 99 mL/min; Glucose 93 mg/dL (74-106); Potassium 3.4 mmol/L (3.5-5.1); Sodium 137 mmol/L (136-145)
[2020-10-14 04:57] LABS: Alanine Aminotransferase 22 U/L (16-61); Alkaline Phosphatase 97 U/L (45-117); Aspartate Aminotransferase 21 U/L (15-37); Bilirubin, Total 0.3 mg/dL (0.2-1.0); Total Protein 7.5 g/dL (6.4-8.2)
[2020-10-14 05:31] LABS: CRP High Sensitivity > 19 mg/dL (< 0.3)
[2020-10-14 05:33] LABS: Carbon Dioxide 41 mmol/L (21-32)
[2020-10-14] MEDS: FUROSEMIDE INJECTION 100 MG in D5W 5% 100 ML IV SCH (06:00)
[2020-10-14] MEDS: CALCIUM ACETATE 667 MG CAP NG SCH ×3 (06:00→21:39)
[2020-10-14] MEDS: FREE WATER GT SCH ×4 (06:00→21:39)
[2020-10-14] MEDS: acetaZOLAMIDE SODIUM 500 MG VL IV SCH (09:35)
[2020-10-14] MEDS: HEPARIN SODIUM (PORCINE) 5000 UNITS/ML 1ML VIAL SC SCH ×2 (09:42→22:18)
[2020-10-14] MEDS: PANTOPRAZOLE 40 MG/10 ML VIAL INJ IV SCH (09:43)
[2020-10-14] MEDS: ACETAMINOPHEN 325 MG TAB PO PRN (09:43)
[2020-10-14] MEDS: IPRATROPIUM BROM 0.5 MG/2.5ML INH SOL NEB SCH (18:00)
[2020-10-14] MEDS: ALBUTEROL SULF 2.5 MG/0.5ML(0.5%) NEB SOLN NEB SCH (18:00)
[2020-10-14] MEDS: NOREPINEPHRINE 8 MG/250ML KIT 250 ML IV SCH (20:00)
[2020-10-15] VITALS (99 sets, daily range): BP systolic 90–131; BP diastolic 48–85
[2020-10-15] MEDS: PROPOFOL 100 ML IV SCH ×6 (00:52→22:03)
[2020-10-15] MEDS: ACETAMINOPHEN 325 MG TAB PO PRN (01:08)
[2020-10-15] MEDS: fentaNYL Drip 2500mCg/250mlNS 250 ML IV SCH ×2 (02:39→16:27)
[2020-10-15] MEDS: CALCIUM ACETATE 667 MG CAP NG SCH ×3 (04:54→21:50)
[2020-10-15 05:44] LABS: Potassium 3.2 mmol/L (3.5-5.1)
[2020-10-15] MEDS: MIDAZOLAM DRIP 50 mg/50mL 50 ML IV SCH ×3 (05:45→17:27)
[2020-10-15] MEDS: NOREPINEPHRINE 8 MG/250ML KIT 250 ML IV SCH ×2 (05:45→07:37)
[2020-10-15 05:48] LABS: BUN/Creatinine Ratio 16.7; Calcium 8.9 mg/dL (8.5-10.1)
[2020-10-15] MEDS: DOPamine 1600MCG/ML D5W 250 ML IV SCH ×2 (07:10→21:55)
[2020-10-15] MEDS: IPRATROPIUM BROM 0.5 MG/2.5ML INH SOL NEB SCH ×2 (09:20→18:33)
[2020-10-15] MEDS: ALBUTEROL SULF 2.5 MG/0.5ML(0.5%) NEB SOLN NEB SCH ×2 (09:21→18:33)
[2020-10-15] MEDS: POTASSIUM CHL 20MEQ/100ML 100 ML IV SCH ×2 (09:50→12:00)
[2020-10-15] MEDS: PANTOPRAZOLE 40 MG/10 ML VIAL INJ IV SCH (10:00)
[2020-10-15] MEDS: FREE WATER GT SCH ×2 (10:00→21:54)
[2020-10-15] MEDS: HEPARIN SODIUM (PORCINE) 5000 UNITS/ML 1ML VIAL SC SCH ×2 (10:10→21:53)
[2020-10-15 10:42] LABS: INR 1.06 (0.9-1.15)
[2020-10-15] MEDS: MEROPENEM 1GM IVPB 100 ML IV SCH ×2 (14:23→21:51)
[2020-10-15] MEDS: FUROSEMIDE 40 MG/4 ML VIAL IV SCH ×2 (14:25→21:50)
[2020-10-15] MEDS ORDERED: LIDOCAINE 1% (LOCAL ANESTH.) PF 5ml SDV ID ONE (15:30)
[2020-10-15] MEDS: SODIUM CHLOR 0.9% PF (SALINE LOCK) 10ML VIAL/SYR IV SCH (21:50)
[2020-10-15] MEDS: Glucerna 1.2 Cal 1Liter BOTTLE GT SCH (22:03)
[2020-10-16] VITALS (97 sets, daily range): BP systolic 88–121; BP diastolic 50–74
[2020-10-16] MEDS: PROPOFOL 100 ML IV SCH ×5 (02:49→22:33)
[2020-10-16] MEDS: MIDAZOLAM DRIP 50 mg/50mL 50 ML IV SCH ×3 (04:57→14:00)
[2020-10-16] MEDS: MEROPENEM 1GM IVPB 100 ML IV SCH ×3 (06:30→22:17)
[2020-10-16] MEDS: FUROSEMIDE 40 MG/4 ML VIAL IV SCH ×3 (06:30→22:18)
[2020-10-16] MEDS: CALCIUM ACETATE 667 MG CAP NG SCH ×4 (06:31→22:17)
[2020-10-16] MEDS: fentaNYL Drip 2500mCg/250mlNS 250 ML IV SCH (07:01)
[2020-10-16] MEDS: ALBUTEROL SULF 2.5 MG/0.5ML(0.5%) NEB SOLN NEB SCH ×4 (07:23→18:00)
[2020-10-16] MEDS: IPRATROPIUM BROM 0.5 MG/2.5ML INH SOL NEB SCH ×4 (07:23→18:00)
[2020-10-16] MEDS: PANTOPRAZOLE 40 MG/10 ML VIAL INJ IV SCH (10:00)
[2020-10-16] MEDS: SODIUM CHLOR 0.9% PF (SALINE LOCK) 10ML VIAL/SYR IV SCH ×2 (10:00→22:18)
[2020-10-16] MEDS: FREE WATER GT SCH ×2 (10:00→22:00)
[2020-10-16 10:28] LABS: Basophils # (auto) 0.1 10 ^3/uL (0-0.2); Eosinophils # (auto) 0.6 10 ^3/uL (0-0.8); Hemoglobin 8.4 g/dL (13.5-17.5); Mean Corpuscular Volume 90.2 fL (80.0-100.0); Nucleated Red Blood Cells % 0.1 %
[2020-10-16 10:34] LABS: Basophils % (auto) 0.8 % (0.0-2.0); Eosinophils % (auto) 5.5 % (0.0-7.0); Hematocrit 23.4 % (41.0-53.0); Lymphocytes # (auto) 0.7 10 ^3/uL (0.4-5.4); Lymphocytes % (auto) 6.9 % (10.0-50.0); Mean Corpuscular Hemoglobin 32.4 pg (28.0-32.0); Mean Corpuscular Hgb Conc. 35.9 g/dL (32.0-36.0); Monocytes # (auto) 1.1 10 ^3/uL (0-1.3); Monocytes % (auto) 10.5 % (0.0-12.0); Neutrophils % (auto) 76.3 % (37.0-80.0); Platelet Count (auto) 271 10^3/uL (140-450); Red Cell Distribution Width 19.7 % (11.8-14.3); White Blood Cell 10.5 10^3/uL (4.4-10.8)
[2020-10-16 11:02] LABS: BUN/Creatinine Ratio 13.5; Calcium 7.6 mg/dL (8.5-10.1); Potassium 3.2 mmol/L (3.5-5.1)
[2020-10-16] MEDS: HEPARIN SODIUM (PORCINE) 5000 UNITS/ML 1ML VIAL SC SCH ×2 (11:35→22:19)
[2020-10-16] MEDS: ACETAMINOPHEN 325 MG TAB PO PRN (14:23)
[2020-10-16] MEDS: POTASSIUM CHL 20MEQ/100ML 100 ML IV SCH ×2 (14:23→17:00)
[2020-10-16] MEDS: DOPamine 1600MCG/ML D5W 250 ML IV SCH (14:45)
[2020-10-16] MEDS: NOREPINEPHRINE 8 MG/250ML KIT 250 ML IV SCH (20:00)
[2020-10-16] MEDS: FAMOTIDINE (10MG/ML) 2ML VL IV SCH (22:18)
[2020-10-17] VITALS (89 sets, daily range): BP systolic 86–104; BP diastolic 51–67
[2020-10-17] MEDS: ACETAMINOPHEN 325 MG TAB PO PRN ×2 (01:37→11:07)
[2020-10-17] MEDS: PROPOFOL 100 ML IV SCH ×7 (01:38→23:14)
[2020-10-17] MEDS: MIDAZOLAM DRIP 50 mg/50mL 50 ML IV SCH ×4 (04:21→18:08)
[2020-10-17] MEDS: CALCIUM ACETATE 667 MG CAP NG SCH ×3 (05:57→21:26)
[2020-10-17] MEDS: MEROPENEM 1GM IVPB 100 ML IV SCH ×3 (05:57→21:26)
[2020-10-17] MEDS: DOPamine 1600MCG/ML D5W 250 ML IV SCH ×2 (05:58→23:12)
[2020-10-17] MEDS: FUROSEMIDE 40 MG/4 ML VIAL IV SCH ×3 (05:58→21:25)
[2020-10-17] MEDS: fentaNYL Drip 2500mCg/250mlNS 250 ML IV SCH ×2 (07:27→17:46)
[2020-10-17] MEDS: IPRATROPIUM BROM 0.5 MG/2.5ML INH SOL NEB SCH ×3 (08:45→18:00)
[2020-10-17] MEDS: ALBUTEROL SULF 2.5 MG/0.5ML(0.5%) NEB SOLN NEB SCH ×3 (08:45→18:00)
[2020-10-17] MEDS: FREE WATER GT SCH ×2 (09:20→21:25)
[2020-10-17] MEDS: FAMOTIDINE (10MG/ML) 2ML VL IV SCH ×2 (09:25→21:26)
[2020-10-17] MEDS: SODIUM CHLOR 0.9% PF (SALINE LOCK) 10ML VIAL/SYR IV SCH ×2 (09:25→21:26)
[2020-10-17] MEDS: HEPARIN SODIUM (PORCINE) 5000 UNITS/ML 1ML VIAL SC SCH ×2 (09:30→21:22)
[2020-10-17] MEDS: NOREPINEPHRINE 8 MG/250ML KIT 250 ML IV SCH (20:00)
[2020-10-18] VITALS (76 sets, daily range): BP systolic 83–128; BP diastolic 42–84
[2020-10-18] MEDS: ALBUTEROL SULF 2.5 MG/0.5ML(0.5%) NEB SOLN NEB SCH ×5 (01:43→22:20)
[2020-10-18] MEDS: IPRATROPIUM BROM 0.5 MG/2.5ML INH SOL NEB SCH ×5 (01:43→22:20)
[2020-10-18] MEDS: PROPOFOL 100 ML IV SCH ×4 (03:28→23:45)
[2020-10-18] MEDS: FUROSEMIDE 40 MG/4 ML VIAL IV SCH ×3 (06:26→20:50)
[2020-10-18] MEDS: MEROPENEM 1GM IVPB 100 ML IV SCH ×3 (06:26→20:53)
[2020-10-18] MEDS: CALCIUM ACETATE 667 MG CAP NG SCH ×3 (06:26→20:54)
[2020-10-18] MEDS ORDERED: FUROSEMIDE 20 MG/2 ML VIAL ONE (08:41)
[2020-10-18] MEDS: FREE WATER GT SCH (09:53)
[2020-10-18] MEDS: FAMOTIDINE (10MG/ML) 2ML VL IV SCH ×2 (09:55→20:53)
[2020-10-18] MEDS: SODIUM CHLOR 0.9% PF (SALINE LOCK) 10ML VIAL/SYR IV SCH ×2 (09:55→20:54)
[2020-10-18] MEDS: HEPARIN SODIUM (PORCINE) 5000 UNITS/ML 1ML VIAL SC SCH ×2 (09:56→20:55)
[2020-10-18 10:44] LABS: Basophils # (auto) 0.1 10 ^3/uL (0-0.2); Eosinophils # (auto) 0.6 10 ^3/uL (0-0.8); Eosinophils % (auto) 7.6 % (0.0-7.0); Hematocrit 24.4 % (41.0-53.0); Hemoglobin 8.4 g/dL (13.5-17.5); Lymphocytes # (auto) 1.1 10 ^3/uL (0.4-5.4); Lymphocytes % (auto) 13.4 % (10.0-50.0); Mean Corpuscular Hemoglobin 30.7 pg (28.0-32.0); Mean Corpuscular Hgb Conc. 34.4 g/dL (32.0-36.0); Monocytes # (auto) 0.8 10 ^3/uL (0-1.3); Monocytes % (auto) 10.2 % (0.0-12.0); Neutrophils # (auto) 5.5 10 ^3/uL (1.6-8.6); Neutrophils % (auto) 67.8 % (37.0-80.0); Nucleated Red Blood Cells % 0.1 %; Platelet Count (auto) 400 10^3/uL (140-450); Red Blood Cells 2.75 10^6/uL (4.5-5.90); Red Cell Distribution Width 20.3 % (11.8-14.3); White Blood Cell 8.1 10^3/uL (4.4-10.8)
[2020-10-18 11:04] LABS: Albumin 1.8 g/dL (3.4-5.0); Calcium 7.8 mg/dL (8.5-10.1)
[2020-10-18 12:18] LABS: Potassium 2.9 mmol/L (3.5-5.1)
[2020-10-18 12:20] LABS: Total Protein 7.2 g/dL (6.4-8.2)
[2020-10-18 12:21] LABS: BUN/Creatinine Ratio 23.2
[2020-10-18] MEDS: POTASSIUM CHL 20MEQ/100ML 100 ML IV SCH ×4 (14:00→21:30)
[2020-10-18] MEDS: Glucerna 1.2 Cal 1Liter BOTTLE GT SCH (14:00)
[2020-10-18] MEDS: DOPamine 1600MCG/ML D5W 250 ML IV SCH (14:45)
[2020-10-18] MEDS: fentaNYL Drip 2500mCg/250mlNS 250 ML IV SCH (15:13)
[2020-10-18] MEDS: MIDAZOLAM DRIP 50 mg/50mL 50 ML IV SCH (22:21)
[2020-10-19] VITALS (78 sets, daily range): BP systolic 82–126; BP diastolic 31–81
[2020-10-19] MEDS: fentaNYL Drip 2500mCg/250mlNS 250 ML IV SCH ×2 (01:42→19:15)
[2020-10-19] MEDS: PROPOFOL 100 ML IV SCH ×6 (02:45→19:13)
[2020-10-19] MEDS: MIDAZOLAM DRIP 50 mg/50mL 50 ML IV SCH ×4 (02:57→19:16)
[2020-10-19 04:12] LABS: Eosinophils # (auto) 0.6 10 ^3/uL (0-0.8); Mean Corpuscular Hgb Conc. 32.1 g/dL (32.0-36.0); Monocytes # (auto) 0.8 10 ^3/uL (0-1.3); Nucleated Red Blood Cells % 0.1 %
[2020-10-19 04:16] LABS: Basophils # (auto) 0 10 ^3/uL (0-0.2); Basophils % (auto) 0.5 % (0.0-2.0); Eosinophils % (auto) 7.8 % (0.0-7.0); Hematocrit 27.4 % (41.0-53.0); Hemoglobin 8.8 g/dL (13.5-17.5); Lymphocytes % (auto) 12.4 % (10.0-50.0); Mean Corpuscular Hemoglobin 28.7 pg (28.0-32.0); Mean Corpuscular Volume 89.4 fL (80.0-100.0); Monocytes % (auto) 10.2 % (0.0-12.0); Neutrophils # (auto) 5.5 10 ^3/uL (1.6-8.6); Neutrophils % (auto) 69.1 % (37.0-80.0); Platelet Count (auto) 470 10^3/uL (140-450); Red Blood Cells 3.07 10^6/uL (4.5-5.90); Red Cell Distribution Width 19.8 % (11.8-14.3)
[2020-10-19 04:23] LABS: Potassium 3.5 mmol/L (3.5-5.1)
[2020-10-19 04:27] LABS: Albumin 2.2 g/dL (3.4-5.0); BUN/Creatinine Ratio 22.8
[2020-10-19 04:29] LABS: Bilirubin, Total 0.3 mg/dL (0.2-1.0); Total Protein 7.7 g/dL (6.4-8.2)
[2020-10-19] MEDS: FUROSEMIDE 40 MG/4 ML VIAL IV SCH ×3 (05:00→21:12)
[2020-10-19] MEDS: MEROPENEM 1GM IVPB 100 ML IV SCH ×3 (05:01→21:13)
[2020-10-19] MEDS: CALCIUM ACETATE 667 MG CAP NG SCH ×3 (05:01→21:13)
[2020-10-19] MEDS: DOPamine 1600MCG/ML D5W 250 ML IV SCH ×3 (06:11→21:13)
[2020-10-19] MEDS: IPRATROPIUM BROM 0.5 MG/2.5ML INH SOL NEB SCH ×3 (08:04→18:00)
[2020-10-19] MEDS: ALBUTEROL SULF 2.5 MG/0.5ML(0.5%) NEB SOLN NEB SCH ×3 (08:04→18:00)
[2020-10-19] MEDS: NOREPINEPHRINE 8 MG/250ML KIT 250 ML IV SCH ×2 (09:19→19:30)
[2020-10-19] MEDS: FAMOTIDINE (10MG/ML) 2ML VL IV SCH ×2 (09:33→21:13)
[2020-10-19] MEDS: ACETAMINOPHEN 325 MG TAB PO PRN (09:34)
[2020-10-19] MEDS: HEPARIN SODIUM (PORCINE) 5000 UNITS/ML 1ML VIAL SC SCH ×2 (09:36→20:52)
[2020-10-19] MEDS: SODIUM CHLOR 0.9% PF (SALINE LOCK) 10ML VIAL/SYR IV SCH ×2 (09:36→21:13)
[2020-10-19] MEDS ORDERED: BACITRACIN TOP OINT 1 UD PKG TOP ONE (14:28)
[2020-10-20] VITALS (75 sets, daily range): BP systolic 76–135; BP diastolic 26–87
[2020-10-20] MEDS: PROPOFOL 100 ML IV SCH ×6 (00:26→18:00)
[2020-10-20] MEDS: MIDAZOLAM DRIP 50 mg/50mL 50 ML IV SCH ×4 (00:27→20:38)
[2020-10-20] MEDS: FUROSEMIDE 40 MG/4 ML VIAL IV SCH ×3 (05:51→21:08)
[2020-10-20] MEDS: CALCIUM ACETATE 667 MG CAP NG SCH ×3 (05:52→21:14)
[2020-10-20] MEDS: MEROPENEM 1GM IVPB 100 ML IV SCH ×3 (05:52→21:07)
[2020-10-20] MEDS: ALBUTEROL SULF 2.5 MG/0.5ML(0.5%) NEB SOLN NEB SCH ×5 (06:00→23:39)
[2020-10-20] MEDS: IPRATROPIUM BROM 0.5 MG/2.5ML INH SOL NEB SCH ×5 (06:00→23:39)
[2020-10-20] MEDS: fentaNYL Drip 2500mCg/250mlNS 250 ML IV SCH (09:15)
[2020-10-20] MEDS: SODIUM CHLOR 0.9% PF (SALINE LOCK) 10ML VIAL/SYR IV SCH ×2 (10:28→22:00)
[2020-10-20] MEDS: HEPARIN SODIUM (PORCINE) 5000 UNITS/ML 1ML VIAL SC SCH ×2 (10:28→21:09)
[2020-10-20] MEDS: FAMOTIDINE (10MG/ML) 2ML VL IV SCH ×2 (10:28→21:10)
[2020-10-20] MEDS: ACETAMINOPHEN 325 MG TAB PO PRN (10:53)
[2020-10-20] MEDS: DOPamine 1600MCG/ML D5W 250 ML IV SCH (12:47)
[2020-10-20] MEDS: Glucerna 1.2 Cal 1Liter BOTTLE GT SCH (16:00)
[2020-10-20] MEDS: NOREPINEPHRINE 8 MG/250ML KIT 250 ML IV SCH (20:00)
[2020-10-21] VITALS (40 sets, daily range): BP systolic 0–120; BP diastolic 0–87
[2020-10-21] MEDS: FUROSEMIDE 40 MG/4 ML VIAL IV SCH (05:09)
[2020-10-21] MEDS: MEROPENEM 1GM IVPB 100 ML IV SCH (05:23)
[2020-10-21] MEDS: CALCIUM ACETATE 667 MG CAP NG SCH (05:24)
[2020-10-21] MEDS: ALBUTEROL SULF 2.5 MG/0.5ML(0.5%) NEB SOLN NEB SCH (06:58)
[2020-10-21] MEDS: IPRATROPIUM BROM 0.5 MG/2.5ML INH SOL NEB SCH (06:58)
[2020-10-21] MEDS: SODIUM CHLOR 0.9% PF (SALINE LOCK) 10ML VIAL/SYR IV SCH (09:38)
[2020-10-21] MEDS: FAMOTIDINE (10MG/ML) 2ML VL IV SCH (09:38)
[2020-10-21] MEDS: HEPARIN SODIUM (PORCINE) 5000 UNITS/ML 1ML VIAL SC SCH (09:39)
[2020-10-21] MEDS: PROPOFOL 100 ML IV SCH ×2 (09:42→12:02)
[2020-10-21] MEDS ORDERED: LORazepam 2MG/ML-1ML VIAL IV PRN (12:00)
[2020-10-21] MEDS ORDERED: MORPHINE SULFATE 4 MG/ML SYR/VIAL IV PRN (12:00)
[2020-10-21] MEDS: fentaNYL Drip 2500mCg/250mlNS 250 ML IV SCH (12:03)
[2020-10-21] MEDS ORDERED: LORazepam 2MG/ML-1ML VIAL ONE (13:01)
== END 2020-10-21 23:03 | DRG 720 ==
LOC: ER 08:37 → TELE 08:38 → ICU WEST 09-21 23:40 → CATH ICU 09-23 09:46
PROVIDERS: ADMIT Internal Medicine; ATTEND Internal Medicine
PROC: 5A1955Z Respiratory Ventilation, Greater than 96 Consecutive Hours (ICD-10-PCS; principal; 2020-09-15)
PROC: 0BH17EZ Insertion of Endotracheal Airway into Trachea, Via Natural or Artificial Opening (ICD-10-PCS; 2020-09-15)
PROC: 0B9J8ZZ Drainage of Left Lower Lung Lobe, Via Natural or Artificial Opening Endoscopic (ICD-10-PCS; 2020-09-24)
PROC: 0B9F8ZZ Drainage of Right Lower Lung Lobe, Via Natural or Artificial Opening Endoscopic (ICD-10-PCS; 2020-09-24)
PROC: 0DJD8ZZ Inspection of Lower Intestinal Tract, Via Natural or Artificial Opening Endoscopic (ICD-10-PCS; 2020-10-04)
PROC: 30233N1 Transfusion of Nonautologous Red Blood Cells into Peripheral Vein, Percutaneous Approach (ICD-10-PCS; 2020-10-05)
PROC: 05HB33Z Insertion of Infusion Device into Right Basilic Vein, Percutaneous Approach (ICD-10-PCS; 2020-10-15)
PROC: B54MZZA Ultrasonography of Right Upper Extremity Veins, Guidance (ICD-10-PCS; 2020-10-15)
DX: A41.9 Sepsis, unspecified organism (principal); N17.0 Acute kidney failure with tubular necrosis; J95.851 Ventilator associated pneumonia; J44.0 Chronic obstructive pulmonary disease with (acute) lower respiratory infection; J44.1 Chronic obstructive pulmonary disease with (acute) exacerbation; E87.1 Hypo-osmolality and hyponatremia; Z68.44 Body mass index [BMI] 60.0-69.9, adult; Z20.822 Contact with and (suspected) exposure to COVID-19; E86.0 Dehydration; Z66 Do not resuscitate; Z51.5 Encounter for palliative care; E87.0 Hyperosmolality and hypernatremia; I13.0 Hypertensive heart and chronic kidney disease with heart failure and stage 1 through stage 4 chronic kidney disease, or unspecified chronic kidney disease; E11.22 Type 2 diabetes mellitus with diabetic chronic kidney disease; E66.01 Morbid (severe) obesity due to excess calories; E87.6 Hypokalemia; I82.412 Acute embolism and thrombosis of left femoral vein; B95.5 Unspecified streptococcus as the cause of diseases classified elsewhere; E87.5 Hyperkalemia; E83.39 Other disorders of phosphorus metabolism; N18.9 Chronic kidney disease, unspecified; I50.43 Acute on chronic combined systolic (congestive) and diastolic (congestive) heart failure; D64.9 Anemia, unspecified; J98.11 Atelectasis; R31.9 Hematuria, unspecified; G93.41 Metabolic encephalopathy; Z16.12 Extended spectrum beta lactamase (ESBL) resistance; B96.20 Unspecified Escherichia coli [E. coli] as the cause of diseases classified elsewhere; J15.211 Pneumonia due to Methicillin susceptible Staphylococcus aureus; K92.2 Gastrointestinal hemorrhage, unspecified; I27.20 Pulmonary hypertension, unspecified; I82.A12 Acute embolism and thrombosis of left axillary vein; Z79.01 Long term (current) use of anticoagulants; Z79.84 Long term (current) use of oral hypoglycemic drugs; Z82.49 Family history of ischemic heart disease and other diseases of the circulatory system; Z79.899 Other long term (current) drug therapy; J96.01 Acute respiratory failure with hypoxia; J96.02 Acute respiratory failure with hypercapnia; T45.515A Adverse effect of anticoagulants, initial encounter; Y84.8 Other medical procedures as the cause of abnormal reaction of the patient, or of later complication, without mention of misadventure at the time of the procedure; R65.21 Severe sepsis with septic shock
CPT/HCPCS: 31500; 31622; 36415; 36556; 36569; 36600; 45378; 71045; 76604; 80048; 80053; 80076; 80202; 81001; 82306; 82570; 82728; 82805; 82962; 83605; 83735; 83880; 84100; 84132; 84156; 84300; 84484; 85007; 85014; 85018; 85025; 85027; 85048; 85362; 85379; 85384; 85610; 85730; 86141; 86606; 86635; 86738; 86850; 86900; 86901; 86920; 87040; 87070; 87077; 87086; 87186; 87205; 87278; 87426; 87449; 87804; 87880; 93005; 93306; 93926; 93970; 93971; 94002; 94003; 94640; 99291; A4618; C9113; G0378; J0171; J0330; J0696; J1561; J1956; J2185; J2250; J2543; J2704; J3480; J3490; J7060